=== PATIENT | female | born 1950 | race Caucasian/White ===

== ENCOUNTER 2017-04-26 11:35 | Inpatient (IN) | payer OTHER, SELFPAY ==
[~2017-04-26 11:35] MED LIST: Iopamidol 370 76% 100 ML VIAL ONE
--- NOTE | 2017-04-26 12:26 | RAD ---
PORTABLE FRONTAL CHEST RADIOGRAPH: Date: 04-26-17 Comparison: None. History: Cough, fever, shortness of breath. FINDINGS: There is mild increased linear interstitial density with pulmonary hyperinflation. There is no pneumo thorax, pleural fluid, focal consolidation or alveolar edema. IMPRESSION: Interstitial prominence with pulmonary hyperinflation. Question a history of COPD. No focal consolida tion or alveolar edema. POS: [facility]
[2017-04-26] MEDS ORDERED: cefTRIAXone\\ROCEPHIN 1 GM VIAL ONE (12:27)
[2017-04-26] MEDS ORDERED: Azithromycin 250 MG TAB ONE (12:27)
[2017-04-26] MEDS ORDERED: Acetaminophen 325 MG TAB ONE (12:27)
[2017-04-26] MEDS ORDERED: methylPREDNISolone Sod Succ/PF 125 MG/2 ML VIAL ONE (12:27)
[2017-04-26 12:28] LABS: #Basophils 0.1 thou/uL (0.0-0.2); #Lymphocytes 1.7 thou/uL (1.20-3.40); #Neutrophils 14.2 thou/uL (1.40-6.50); %Basophils 0.7 % (0.0-1.0); %Lymphocytes 9.5 % (21.0-51.0); %Monocytes 11.2 % (0.0-10.0); %Neutrophils 78.5 % (42.0-75.0); Hemoglobin 14.2 g/dL (12.0-16.0); Mean Corpuscular HGB CONC 32.7 g/dL (32.0-36.0); Mean Corpuscular Volume 91.8 fl (81.0-99.0); Mean Platelet Volume 9.3 fL (7.4-10.4); Platelet Count 288 thou/uL (130-400); RBC Distribution Width 11.2 % (11.5-14.5); Red Blood Cell (RBC) Count 4.73 mill/uL (4.20-5.40); White Blood Cell (WBC) Count 18.1 thou/uL (4.8-10.8)
[2017-04-26 12:40] LABS: ALT (SGPT) 11 U/L (8-55); AST (SGOT) 19 U/L (5-34); Albumin 3.8 g/dL (3.4-4.8); Alkaline Phosphatase 55 U/L (40-150); Anion Gap 17 mmol/L (10-20); BUN (Urea Nitrogen) 7 mg/dL (9.8-20.1); Bilirubin, Total 0.5 mg/dL (0.2-1.2); Calc. Creatinine Clearance 0 mL/min (70-130); Calcium 9.9 mg/dL (7.8-10.44); Carbon Dioxide 23 mmol/L (23-31); Chloride 98 mmol/L (98-107); Estimated GFR-MDRD 73; Globulin 4.3 g/dL (2.4-3.5); Glucose 114 mg/dL (80-115); Potassium 4.3 mmol/L (3.5-5.1); Protein, Total 8.1 g/dL (6.0-8.3); Sodium 134 mmol/L (136-145)
[2017-04-26 12:41] LABS: CKMB 1.9 ng/mL (0-6.6); Troponin I Less than 0.010 ng/mL (< 0.028)
[2017-04-26] MEDS ORDERED: Ibuprofen 200 MG TAB ONE (12:59)
--- NOTE | 2017-04-26 14:14 | CT ---
CT ANGIOGRAM THORAX WITH IV CONTRAST AND 3D RECONSTRUCTIONS: Date: 04/26/17 HISTORY: Cough, fever, and shortness of breath since 04/13/17. FINDINGS: The thoracic aorta is normal in caliber without evidence of an aortic dissection. Minimal vascular ca lcifications are seen at the aortic arch. No filling defects are seen in the pulmonary arteries to suggest a pulmonary embolus. Visualized upper abdominal aorta is patent. The celiac and superior mesenteric arteries are patent, b ut there appears to be a severe narrowing involving the most proximal common hepatic artery. The visualized bilateral renal arteries are patent. There is soft tissue density seen in the right hilar region with largest area of soft tissue density measuring 1.7 cm x 1.3 cm suggesting lymphadenopathy. Soft tissue density is also seen in the left hi lar region measuring 16.0 mm x 10.0 mm, also suggestive of mildly enlarged lymph node. A few nonspeci fic, nonenlarged prevascular space lymph nodes are present. There is mild, nonspecific thickening of the aleman of the esophagus at the level of the distal trache a near the [place]. There is evidence of COPD with prominent bullous emphysematous changes in the right upper lobe. Retic ulonodular opacities are seen within the right upper, right middle, and right lower lobes, and to a l nadira extent in the left lower lobe, likely related to infectious or inflammatory process. Atypical i nfectious process is a possibility. There are patchy parenchymal changes in the right middle lobe which could be related to atelectasis o r focal area of pneumonitis. No pleural effusion is identified. Calcified granuloma is seen in the left lower lobe. A subcentimeter, too small to characterize, hypodense lesion is seen in the mid portion of the right kidney. There is thickening involving the adrenal glands bilaterally, but there is a small hypodense nodule i n the right adrenal gland measuring 1.9 cm. This cannot be further characterized on this postcontrast CT scan exam. IMPRESSION: 1. Reticulonodular densities seen bilaterally, greater on the right, which is suggestive of an infec tious or inflammatory process. Atypical infectious process is a possibility. 2. Prominent bilateral hilar lymph nodes which may represent mild reactive lymphadenopathy. 3. Apparent mild thickening involving the mid thoracic esophagus just above the level of the [place]. Follow-up evaluation versus endoscopy is recommended. 4. Right adrenal nodule. This cannot be further characterized on this exam, and a noncontrast CT sca n of the abdomen is recommended for further evaluation of the adrenal glands. 5. COPD. 6. Focal narrowing seen within the most proximal aspect of the common hepatic artery with degree of narrowing being severe in severity. 7. No CT evidence of a pulmonary embolus. POS: [facility]
[2017-04-26 16:33] VITALS: BMI 23.8
[2017-04-26] MEDS ORDERED: Ipratropium Bromide 2.5 ml Neb NEB PRN (16:41)
[2017-04-26] MEDS ORDERED: Albuterol Sulfate 2.5 mg/3 ml Neb NEB PRN (16:41)
[2017-04-26] MEDS ORDERED: Ondansetron HCl/PF 4 MG/2 ML Vial IVP PRN (16:42)
[2017-04-26] MEDS ORDERED: Ondansetron ODT 4 MG TAB SL PRN (16:42)
[2017-04-26] MEDS ORDERED: Ondansetron ODT 4 MG TAB PO PRN (17:14)
[2017-04-26] MEDS ORDERED: Acetaminophen 325 MG TAB PO PRN (17:14)
[2017-04-26] MEDS ORDERED: cefTRIAXone\\ROCEPHIN 1 GM in Sodium Chloride 0.9% 100 ML IVPB SCH (17:15)
[2017-04-26] MEDS ORDERED: Loratadine 10 MG TAB PO PRN (17:23)
[2017-04-26] MEDS: Benzonatate 100 MG CAP PO PRN (18:51)
--- NOTE | 2017-04-26 23:44 | HP ---
DATE OF SERVICE: 04/26/2017 CHIEF COMPLAINT: Cough and shortness of breath. HISTORY OF PRESENT ILLNESS: The patient is a 66-year-old female with a past medical history of fibromyalgia who presented to my office this morning as a new patient with cough, fever, chills, headache and muscle aches since . The patient noted that her was sick with similar symptoms and then she became ill. Her illness started the day after she got both the flu and pneumonia shot. She has noticed that her sensitivities, it is decreased over the past couple of weeks and she also stated that her urine output was decreased as well. She noted that her appetite was not as great, she had been drinking quite as much as she normally does. She states that over the course of the past 3 days, her cough has become productive of yellow sputum and she also endorses shortness of breath and some occasional wheezing. On arrival to my office for initial O2 sats were between 70% and 80% on room air. As she would stop and take some deep breath it would get as high as 88, so this was checked on 2 different pulse oximeters. The patient was sent to the ER where she had a chest x-ray and CT scan which showed possible scattered pneumonia. She has received Rocephin and azithromycin so far, as well as IV Solu-Medrol and breathing treatment. The patient notes that she is already feeling a little bit better and she is not requiring oxygen at this time. The patient's cough is also improved since she had a breathing treatment. The patient is being admitted to the medical floor for COPD exacerbation and pneumonia. PAST MEDICAL HISTORY: 1. Fibromyalgia. 2. Suspected chronic obstructive pulmonary disease. PAST SURGICAL HISTORY: Cervical conization. SOCIAL HISTORY: The patient is and does have children. She has 50-pack -year smoking history, but has not smoked since 04/13/2017. She endorses rare alcohol use, maybe 2 to 3 times per year and no other drug use. FAMILY HISTORY: Mom had hypertension and dad was an alcoholic and had COPD. ALLERGIES: CODEINE. MEDICATIONS: None. REVIEW OF SYSTEMS: General: Positive for fever and chills. Eyes: Negative for blurry vision or eye pain. HEENT: Positive for sinus congestion, ear pain, but denies sore throat. Cardiovascular: Negative for chest pain, palpitations, and lower extremity edema. Respiratory: Positive for shortness of breath, cough, and wheezing. Gastrointestinal: Negative for nausea, vomiting, diarrhea, and constipation. Genitourinary: Negative for dysuria and polyuria. Musculoskeletal: Positive for diffuse muscle aches and joint pains. Skin: Negative for rashes or itching. Psychiatric: Negative for anxiety and depression. Neurologic: Negative for syncope and seizure. PHYSICAL EXAMINATION: VITAL SIGNS: Temperature 97.1, pulse 74, respiratory rate 16, O2 sat 96% on 1-1 /2 liters, and blood pressure 125/68. GENERAL: The patient is awake, alert, and oriented, in no acute distress. EYES: Pupils are equal, round, and reactive to light and accommodation. Extraocular muscles intact. HEENT: Oropharynx and nasopharynx are without erythema or exudate. NECK: Supple without lymphadenopathy, thyromegaly or bruits. CARDIOVASCULAR: Regular rate and rhythm without murmurs, gallops, or rubs. LUNGS: Coarse breath sounds with scattered wheezing on expiration and occasional rhonchi noted. The patient has normal effort, no retractions. ABDOMEN: Soft, nontender, nondistended, bowel sounds present. EXTREMITIES: There is no clubbing, cyanosis or edema. MUSCULOSKELETAL: The patient has full range of motion of all extremities. Muscle strength is 5/5. SKIN: There are no rashes or jaundice noted. NEUROLOGIC: Cranial nerves II through XII are grossly intact, deep tendon reflexes 2/4. PSYCHIATRIC: The patient displays an appropriate mood and affect during the exam. LABS: 1. CBC: WBC is 18.1, hemoglobin 14.2, hematocrit 43.4, platelet count 288, neutrophils 78.5. 2. D-dimer is 0.75. 3. CMP: Sodium 134, potassium 4.3, chloride 98, bicarbonate 23, BUN 7, creatinine 0.79, glucose 114, calcium 9.9, total bilirubin 0.5, AST 19, ALT 11, alkaline phosphatase 55, total protein 8.1, albumin 3.8. 4. BNP 22.1. 5. Cardiac enzymes: CK-MB 1.9 and troponin I less than 0.01. IMAGIN. Chest x-ray shows pulmonary hyperinflation without focal consolidation. 2. CTA of the chest shows reticular nodular densities, bilateral lungs suggestive of infectious or inflammatory process with reactive hilar lymph nodes as well as mild thickening of the mid thoracic esophagus and focal narrowing of the common hepatic artery, but no PE was noted. ASSESSMENT AND PLAN: 1. Community-acquired pneumonia: The patient will be continued on Rocephin and azithromycin. We will cover for atypical bacteria. The patient has already tested negative for the flu in our office. We will repeat a CBC in the morning to trend her white count. 2. Chronic obstructive pulmonary disease exacerbation: The patient will be continued on steroids as well as scheduled DuoNebs and albuterol as needed. She will have oxygen as needed, we will try to wean this over the course of her hospitalization. 3. Fibromyalgia: The patient will have Tylenol and will monitor pain and adjust as needed. 4. Thickening in the esophagus: The patient will need outpatient GI workup and likely need an EGD. 5. Narrowing in the hepatic artery: We can schedule the patient for a CT abdomen without contrast. 6. Substance abuse: Counseled pt on cessation of marijuana use. 7. Deep venous thrombosis prophylaxis with Lovenox. MTDD
[2017-04-26] MEDS ORDERED: methylPREDNISolone Sod Succ/PF 125 MG/2 ML VIAL IVP SCH (23:59)
[2017-04-27] MEDS: Guaifenesin DM 100-10/5 ML UDCUP PO PRN (00:25)
[2017-04-27 05:35] LABS: #Lymphocytes 1.1 thou/uL (1.20-3.40); #Monocytes 0.3 thou/uL (0.11-0.59); #Neutrophils 17.1 thou/uL (1.40-6.50); %Basophils 0.2 % (0.0-1.0); %Lymphocytes 5.8 % (21.0-51.0); %Monocytes 1.5 % (0.0-10.0); %Neutrophils 92.5 % (42.0-75.0); Hemoglobin 11.9 g/dL (12.0-16.0); Mean Corpuscular HGB CONC 33.6 g/dL (32.0-36.0); Mean Corpuscular Hemoglobin 30.7 pg (27.0-31.0); Mean Corpuscular Volume 91.5 fl (81.0-99.0); Mean Platelet Volume 9.2 fL (7.4-10.4); Platelet Count 297 thou/uL (130-400); RBC Distribution Width 11.4 % (11.5-14.5); Red Blood Cell (RBC) Count 3.87 mill/uL (4.20-5.40); White Blood Cell (WBC) Count 18.5 thou/uL (4.8-10.8)
[2017-04-27 05:48] LABS: Anion Gap 16 mmol/L (10-20); BUN (Urea Nitrogen) 15 mg/dL (9.8-20.1); Calc. Creatinine Clearance 65 mL/min (70-130); Calcium 9.6 mg/dL (7.8-10.44); Carbon Dioxide 22 mmol/L (23-31); Chloride 100 mmol/L (98-107); Estimated GFR-MDRD 69; Glucose 176 mg/dL (80-115); Potassium 4.5 mmol/L (3.5-5.1); Sodium 133 mmol/L (136-145)
[2017-04-27] MEDS: Azithromycin 250 MG TAB PO SCH (08:36)
[2017-04-27] MEDS: Enoxaparin Sodium 40 MG/0.4 ML SYRINGE SC SCH (08:37)
[2017-04-27] MEDS ORDERED: Azithromycin 500 MG in Sodium Chloride 0.9% 250 ML 250 ML IVPB SCH (12:00)
[2017-04-27] MEDS: cefTRIAXone\\ROCEPHIN 1 GM VIAL SLOW IVP SCH (12:25)
[2017-04-27] MEDS: Sterile Water 10 ML VIAL FS SCH (12:25)
--- NOTE | 2017-04-27 13:04 | RAD ---
CHEST 2 VIEWS: Date: 04/27/17 HISTORY: Pneumonia. Follow-up. COMPARISON: 04/26/17. FINDINGS: Cardiac silhouette and pulmonary vasculature are unremarkable. Lungs remain well inflated. Calcified granulomata are consistent with healed granulomatous disease. No confluent air space consolidation, p leural fluid, or pneumothorax are evident. IMPRESSION: COPD and other chronic-type findings appear stable. No lobar consolidation is apparent. POS: [facility]
[2017-04-27] MEDS ORDERED: Albuterol Sulfate 2.5 mg/3 ml Neb NEB PRN (20:59)
[2017-04-27] MEDS: Temazepam 15 MG CAP PO PRN (22:10)
--- NOTE | 2017-04-28 00:32 | PRG ---
DATE OF SERVICE: 04/27/2017 SUBJECTIVE: The patient is a 66-year-old female who was admitted for community-acquired pneumonia an d COPD exacerbation. The patient states that her cough is better with the breathing treatments. She has required about a liter and a half of oxygen overnight and notes that she is feeling a little bit better, but is still quite tired. Nursing denies any complaint. OBJECTIVE: VITAL SIGNS: Temperature 97.8, pulse 73, respiratory rate 20, O2 sat 93% on 1-1/2 liters via nasal c annula, blood pressure 126/59. GENERAL: The patient is awake, alert, and oriented, in no acute distress. HEENT: Oropharynx and nasopharynx without erythema or exudates. Mucous membranes are moist. CARDIOVASCULAR: Regular rate and rhythm without murmurs, gallops, or rubs. LUNGS: Coarse breath sounds with decreased wheezing on exam as compared to the day before. ABDOMEN: Soft, nontender, nondistended with bowel sounds present. EXTREMITIES: There is no clubbing, cyanosis, or edema. PSYCHIATRIC: The patient displays appropriate mood and affect. LABORATORY: 1. CBC: WBC 18.5, hemoglobin 11.9, hematocrit 35.4, platelet count 297. 2. BMP: Sodium 133, potassium 4.5, chloride 100, bicarbonate 22, BUN 15, creatinine 0.83, glucose 1 76, calcium 9.6. 3. Chest x-ray shows no lobar consolidation but chronic COPD changes are noted. ASSESSMENT AND PLAN: 1. Community-acquired pneumonia: CT scans were consistent with atypical pneumonia. The patient khadijah l be continued on Rocephin and azithromycin. Blood cultures to date have been negative. The patient 's white count is unchanged; however, symptomatically is feeling better. We will recheck white count in the morning and continue current management. 2. Chronic obstructive pulmonary disease: The patient received Solu-Medrol overnight, will be trans itioned over to p.o. prednisone. She will continue scheduled DuoNebs with albuterol as needed as the y seem to help her breathing and her cough. We will try to wean oxygen as tolerated. 3. Fibromyalgia: We will continue Tylenol. The patient denies significant pains during the visit. 4. Thickening in the esophageal: The patient will need an outpatient GI workup and EGD. 5. Marijuana use: I counseled for cessation. 6. Hepatic artery narrowing: The patient will need a CT of the abdomen without contrast as an outpa tient, pending GI evaluation.
[2017-04-28 05:33] LABS: Band 4 % (5-11); Hemoglobin 11.9 g/dL (12.0-16.0); Lymphocytes 13 % (21-51); MDiff Complete? YES; Mean Corpuscular HGB CONC 33.7 g/dL (32.0-36.0); Mean Corpuscular Hemoglobin 31.2 pg (27.0-31.0); Mean Corpuscular Volume 92.5 fl (81.0-99.0); Mean Platelet Volume 9.3 fL (7.4-10.4); Monocytes 3 % (0-10); Neutrophil 80 % (42-75); PLT Morphology Comment Appears Adequate; Platelet Count 340 thou/uL (130-400); RBC Distribution Width 11.6 % (11.5-14.5); RBC Morphology Normal; Red Blood Cell (RBC) Count 3.83 mill/uL (4.20-5.40); White Blood Cell (WBC) Count 24.7 thou/uL (4.8-10.8)
[2017-04-28 05:42] LABS: Anion Gap 14 mmol/L (10-20); BUN (Urea Nitrogen) 16 mg/dL (9.8-20.1); Calc. Creatinine Clearance 70 mL/min (70-130); Calcium 9.4 mg/dL (7.8-10.44); Carbon Dioxide 23 mmol/L (23-31); Chloride 103 mmol/L (98-107); Estimated GFR-MDRD 75; Glucose 107 mg/dL (80-115); Sodium 136 mmol/L (136-145)
[2017-04-28] MEDS: predniSONE 20 MG TAB PO SCH (08:17)
[2017-04-28] MEDS: Azithromycin 250 MG TAB PO SCH (08:18)
[2017-04-28] MEDS: Enoxaparin Sodium 40 MG/0.4 ML SYRINGE SC SCH (08:18)
--- NOTE | 2017-04-28 08:59 | PRG ---
DATE OF SERVICE: 04/28/2017 SUBJECTIVE: The patient is a 66-year-old female who was admitted for community-acquired pn eumonia and COPD exacerbation. Overnight the patient states that she slept very well. Her cough is much better. She states that she is feeling better and her appetite is improving. She denies abdomi nal pain, chest pain, fever and chills. OBJECTIVE: VITAL SIGNS: Temperature 97.3, pulse 75, respiration rate 18, O2 sat 93% on room air, blood pressure 109/59. Please note that the O2 sat was on room air despite it saying 1.5 liters of oxygen because the patien t forgot to put her oxygen back on. PHYSICAL EXAMINATION: GENERAL: The patient is awake, alert, oriented, in no acute distress. HEENT: Oropharynx and nasopharynx are without erythema. The mucous membranes are moist. CARDIOVASCULAR: Regular rate and rhythm without murmurs, gallops, or rubs. LUNGS: Clear to auscultation bilaterally without wheezing or rhonchi. ABDOMEN: Soft, nontender, nondistended with bowel sounds present. EXTREMITIES: No clubbing, cyanosis, or edema. LABORATORY: 1. CBC: WBCs 24.7, hemoglobin 11.9, hematocrit 35.4, platelet count 340. Neutrophils 80%. 2. BMP: Sodium 136, potassium 4.0, chloride 103, bicarbonate 23, BUN 16, creatinine 0.77, glucose 1 07, calcium 9.4. 3. Blood cultures negative to date. ASSESSMENT AND PLAN: 1. Community-acquired pneumonia: The patient's white blood cell count increased, the neutrophils nguyen ve decreased. Clinically, the patient is looking much better. She has had no fever, no tachycardia, no hypotension and her oxygen requirement is decreasing. Her cough is improving. I think that the leukocytosis is likely secondary to the steroids that she is being treated with because once again cl inically she is much improved. We will check a lactate this morning and repeat her CBC tomorrow. 2. Leukocytosis: See explanation mentioned above, but will also add a urinalysis and urine culture to verify that there are no other sources of infection. 3. Chronic obstructive pulmonary disease exacerbation: The patient is being changed to prednisone w ith the first dose starting today. She will continue scheduled DuoNebs with albuterol as needed. Wh eezing is much improved. We will wean O2 to keep sats greater than 88%. I suspect the patient has u nderlying chronic obstructive pulmonary disease from her long-term smoking use and once she is discha ed, will need pulmonary function testing. 4. Narrowing of the hepatic artery: We will get a CT of the abdomen without contrast as recommended on initial CT scan. 5. Thickening of the esophagus: Once again the patient will need outpatient GI followup for an esop hagogastroduodenoscopy. 6. Fibromyalgia: Pain is currently controlled.
[2017-04-28 10:51] LABS: Bilirubin Negative (Negative); Blood, Urine Small (Negative); Clarity Clear (Clear); Glucose, Urine (Dipstick) Negative (Negative); Leukocyte Negative (Negative); Nitrite Negative (Negative); Protein, Urine (Dipstick) Trace mg/dL (Neg-Trace); Specific Gravity, Urine 1.015 (1.005-1.030); Urobilinogen 0.2 mg/dL (0.2-1.0)
[2017-04-28 11:10] LABS: Bacteria/HPF 1+ HPF (None Seen); Other Microscopic Description NO; RBC/HPF 0-3 HPF (0-3); Yeast-All Forms 1+ HPF (None Seen)
[2017-04-28] MEDS: Guaifenesin DM 100-10/5 ML UDCUP PO PRN (11:26)
--- NOTE | 2017-04-28 12:45 | CT ---
NONCONTRAST-ENHANCED CT IMAGES ABDOMEN AND PELVIS: HISTORY: Patient with a right adrenal lesion. FINDINGS: Noncontrast CT images of the abdomen and pelvis demonstrate the liver and spleen, gallbladder, and pa ncreas appear unremarkable. The right adrenal gland fullness has a Hounsfield measurement of -6.7 hi ggesting an adrenal adenoma. No evidence of periaortic lymphadenopathy is seen. There is a right ov adalgisa cyst or cystic lesion present diameter measuring approximately 2.4 cm. The patient has bilater al fallopian tube surgical clips. Atherosclerotic calcification of the abdominal aorta is seen. IMPRESSION: 1. Right adrenal lesion likely represents a right adrenal adenoma. 2. Right ovarian cyst or cystic lesion. Correlate with pelvic sonography. POS: [facility]
[2017-04-28] MEDS: Sterile Water 10 ML VIAL FS SCH (12:55)
[2017-04-28] MEDS: cefTRIAXone\\ROCEPHIN 1 GM VIAL SLOW IVP SCH (12:55)
[2017-04-28] MEDS: Temazepam 15 MG CAP PO PRN (20:35)
[2017-04-29 05:34] LABS: #Basophils 0.1 thou/uL (0.0-0.2); #Lymphocytes 2.4 thou/uL (1.20-3.40); #Monocytes 0.9 thou/uL (0.11-0.59); %Basophils 0.5 % (0.0-1.0); %Neutrophils 76.5 % (42.0-75.0); Hemoglobin 12.3 g/dL (12.0-16.0); Mean Corpuscular HGB CONC 31.9 g/dL (32.0-36.0); Mean Corpuscular Hemoglobin 29.9 pg (27.0-31.0); Mean Corpuscular Volume 93.7 fl (81.0-99.0); Mean Platelet Volume 8.6 fL (7.4-10.4); Platelet Count 364 thou/uL (130-400); RBC Distribution Width 11.7 % (11.5-14.5); White Blood Cell (WBC) Count 14.3 thou/uL (4.8-10.8)
[2017-04-29 05:47] LABS: Anion Gap 12 mmol/L (10-20); BUN (Urea Nitrogen) 13 mg/dL (9.8-20.1); Calc. Creatinine Clearance 70 mL/min (70-130); Calcium 9.7 mg/dL (7.8-10.44); Carbon Dioxide 27 mmol/L (23-31); Chloride 103 mmol/L (98-107); Estimated GFR-MDRD 75; Glucose 87 mg/dL (80-115); Potassium 4.6 mmol/L (3.5-5.1); Sodium 137 mmol/L (136-145)
[2017-04-29] MEDS: Guaifenesin DM 100-10/5 ML UDCUP PO PRN (08:41)
[2017-04-29] MEDS: Benzonatate 100 MG CAP PO PRN (08:42)
[2017-04-29] MEDS: Enoxaparin Sodium 40 MG/0.4 ML SYRINGE SC SCH (08:43)
[2017-04-29] MEDS: Azithromycin 250 MG TAB PO SCH (08:44)
[2017-04-29] MEDS: predniSONE 20 MG TAB PO SCH (08:44)
[2017-04-29 08:51] VITALS: BP 126/72; TEMP 96.8
[2017-04-29] MEDS ORDERED: PROVENTIL INHALER 6.7 G (200 INHALATIONS) INH PRN (09:32)
--- NOTE | 2017-04-29 17:15 | DIS ---
DATE OF ADMISSION: 04/26/2017 DATE OF DISCHARGE: 04/29/2017 DISCHARGE DIAGNOSES: 1. Community-acquired pneumonia. 2. Chronic obstructive pulmonary disease exacerbation. 3. Fibromyalgia. 4. Adrenal adenoma. 5. Narrowing of hepatic artery. 6. Urinary tract infection. DISCHARGE MEDICATIONS: 1. Bactrim DS 1 p.o. b.i.d. x7 days. 2. Azithromycin 250 mg 1 p.o. daily for an additional 2 days. 3. Prednisone 20 mg tabs, take 2 p.o. q.a.m. x5 days. 4. ProAir inhaler 2 puffs q.4 h. p.r.n. shortness of breath and wheezing. 5. Tessalon 200 mg 1 p.o. q.4 h. p.r.n. cough. HOSPITAL COURSE: The patient is a 66-year-old female who was sent to the ER from my office for shortness of breath, hypoxia and cough. The patient was found to have an atypical pneumonia wit h an elevated white blood cell count and was admitted for IV antibiotics, steroids and oxygen. The p atient was placed on Rocephin and azithromycin. Initially, her white count had climbed to 24,000 dur ing the hospitalization before dropping to 14,000. She has remained afebrile throughout the hospital ization and shortness of breath has improved. The patient also was initially started on Solu-Medrol and has been transitioned over to p.o. prednisone. On initial CTA, it was noted that the patient had some narrowing in her hepatic artery as well as a possible adrenal mass. She had a CT of the abdome n yesterday which showed adrenal adenoma and a possible ovarian cyst. When the patient's white count went up to 24,000 yesterday, we also added a urinalysis with culture. The culture is still pending, but she did have 1+ bacteria on UA. The patient has been started on Bactrim because she did admit t o some dysuria. The patient will be discharged home and will follow up with me as an outpatient with in 1 week. Warning signs were given to the patient to return to the ER. DISPOSITION: 1. Discharge home in stable condition. 2. Diet: Regular. 3. Activity: Ad-luana. 4. The patient will follow up with myself in clinic next week.
[2017-04-29] MEDS ORDERED: Sulfameth/Trimethoprim DS 800-160mg TAB PO SCH (21:00)
== END 2017-04-29 10:26 | disposition home or self-care (01) | DRG 194 ==
LOC: NAV ERS 11:35 → NAV ACUTE 16:10
PROVIDERS: ADMIT Family Medicine; ATTEND Family Medicine
DX: J18.9 Pneumonia, unspecified organism (principal); J44.0 Chronic obstructive pulmonary disease with (acute) lower respiratory infection; J44.1 Chronic obstructive pulmonary disease with (acute) exacerbation; N39.0 Urinary tract infection, site not specified; M79.7 Fibromyalgia; F12.10 Cannabis abuse, uncomplicated; K22.8 Other specified diseases of esophagus; I77.1 Stricture of artery; Z87.891 Personal history of nicotine dependence; D35.01 Benign neoplasm of right adrenal gland
CPT/HCPCS: 36415; 71045; 71046; 71275; 74176; 80048; 80053; 81003; 81015; 82553; 83605; 83880; 84484; 85025; 85379; 87040; 87086; 93005; 94640; 94760; 96374; 96375; A4216; J0696; J1650; J2930; J7506; J7620; Q0162

== ENCOUNTER 2019-03-19 17:20 | Inpatient (IN) | payer MEDICARE ==
--- NOTE | 2019-03-19 17:54 | RAD ---
Exam: Chest one view HISTORY:Rales and rhonchi Comparison: 03/16/2019 FINDINGS: Cardiac silhouette: Normal Aorta: Unremarkable Pulmonary vessels: Normal Costophrenic angles: Clear LUNGS: No masses or consolidation. Chronic changes. Pneumothorax: None Osseous abnormalities: None IMPRESSION: No acute cardiopulmonary process.
[2019-03-19] MEDS ORDERED: Bisacodyl 10 MG SUPP PR PRN (17:56)
[2019-03-19] MEDS ORDERED: Milk Of Magnesia 30 ML UDCUP PO PRN (17:56)
[2019-03-19 18:30] VITALS: BMI 26.2
[2019-03-19] MEDS ORDERED: FLU VACC QS2019-20(6MOS UP)/PF 60 MCG/0.5 ML SYRINGE IM ONE (19:00)
[2019-03-19] MEDS ORDERED: Prevnar 13-Val Conj/PF 0.5 ML SYRINGE IM ONE (19:00)
[2019-03-19] MEDS: Sodium Chloride 1 GM TAB PO SCH (21:19)
[2019-03-19] MEDS: Famotidine 20 MG TAB PER TUBE SCH (21:20)
[2019-03-19] MEDS: NIMODIPINE 30 MG PO SCH (21:36)
--- NOTE | 2019-03-20 02:54 | HP ---
CC: rehabilitation HISTORY OF PRESENT ILLNESS: The patient is a 68-year-old female who is being transferred from [facility] to [place] for rehabilitation following a prolonged hospital stay with subarachnoid hemorrhage. The patient was initially admitted to [facility] in [place] on 03/06/2019. Earlier that day, she was trying to walk out of her bedroom, called her and talked about passing out and subsequently had a syncopal episode. The patient experienced cardiac arrest en route to the emergency department and was given epi and ROSC was achieved. In the ER, the patient was found to have an extensive subarachnoid hemorrhage. She was admitted to the ICU, intubated and sedated for several days. The patient had an external ventriculostomy placed and also underwent coiling of the aneurysm. Over the course of the patient's hospitalization, she did regain some function. I was told that she was alert and oriented to person only and was somewhat difficult to understand. I am also told that she would sit up on the side of the bed and was participating in therapy and slept a lot off and on throughout the day. The patient failed a swallow study and subsequently a PEG tube was placed and she is receiving PEG tube feeds with Jevity 1.5 at 55 mL/hour with 30 mL of free water flushes q.4 hours. The patient developed hyponatremia thought to be secondary to the subarachnoid hemorrhage and she has been receiving salt tabs and her sodium is improving. The patient has had intermittent fevers during her hospitalization and had blood and urine cultures as well as a flu swab and chest x-ray which were all negative. It was thought that the fevers were likely due to the brain bleed. On arrival to [place] today, the patient was tachypneic with a rate of 28, febrile to 101.9 and very minimally responsive. With the sternal rub, the patient did open her eyes and was able to tell me that her name was Martha Calderón. She did not cooperate with any other part of the exam. The patient's O2 saturation was initially around 90% and the highest we could get was about 94%. A stat chest x -ray was ordered, which does not show any pleural effusions, may show some increased interstitial markings, but no definitive pneumonia. The patient's respirations came back to normal. It should be noted that the patient was never tachycardic and her blood pressure was stable the entire time. No other history is available at this time as the patient was unable to provide it. PAST MEDICAL HISTORY: Taken from the medical record shows a past medical history of COPD, hepatitis C status post treatment, subarachnoid hemorrhage, as mentioned above. PAST SURGICAL HISTORY: 1. Cervical conization. 2. Liver biopsy. 3. PEG tube placement. 4. Ventriculostomy. 5. Aneurysm coiling. FAMILY HISTORY: Unremarkable per report. SOCIAL HISTORY: Records indicate the patient has extensive smoking history as well as marijuana use for which she was positive on the recent hospitalization and drinks alcohol socially. REVIEW OF SYSTEMS: Unobtainable due to patient's mental status. ALLERGIES: CODEINE. MEDICATIONS: 1. Tylenol 640 mg per PEG q.6 hours p.r.n. pain or fever. 2. DuoNeb q.4 hours p.r.n. shortness of breath or wheezing. 3. Dulcolax 10 mg per rectum daily as needed for constipation. 4. Famotidine 20 mg per tube q.12 hours. 5. Magnesium 30 mL p.o. daily p.r.n. constipation. 6. Nimodipine 30 mg 2 tabs p.o. q.4 hours scheduled for a total of 3 weeks post hemorrhage. 7. Sodium chloride 4 g p.o. per PEG t.i.d. PHYSICAL EXAMINATION: VITAL SIGNS: Temp 101.9, pulse 82, respiration rate initially 28, but improved to 24, O2 saturation 93% on room air, blood pressure 149/79, and then improved to 137/76. GENERAL: The patient is minimally responsive, opens eyes to sternal rub and is able to answer her name, but does not say anything else. HEENT: Eyes, the patient has small pupils, which are unequal and nonreactive. Mucous membranes are moist without erythema. NECK: Supple without lymphadenopathy, thyromegaly or bruits. CARDIOVASCULAR: Regular rate and rhythm without murmurs, gallops, or rubs. LUNGS: Have rhonchi in bilateral bases. There are no retractions noted on exam nor wheezing. ABDOMEN: Soft, nondistended with normoactive bowel sounds. : Wells is in place. MUSCULOSKELETAL: Strength is unable to be assessed secondary to patient's mental status not cooperating with the exam. SKIN: No rashes, lesions, or jaundice noted. NEUROLOGIC: I am unable to do any neuro exam as the patient was unable to cooperate outside of gripping my hand on the right, but does not manager transport at all on the left. She does not follow any other commands. PSYCHIATRIC: The patient opens eyes to her name, but is not conversant beyond the ability to say her name. LABORATORY DATA: CBC: WBC 16.3, which is down trended to yesterday, hemoglobin 9.1, hematocrit 26.8, platelet count 385. BMP: Sodium 129, potassium 4.5, chloride 98, bicarb 29, BUN 14, creatinine 0.67 , glucose 127, calcium 8.4. ASSESSMENT AND PLAN: 1. Subarachnoid hemorrhage: The patient will continue on Nimotop for blood pressure control. We will monitor the patient overnight to see, if the patient's mental status improves. 2. Fever of unknown origin: I am going to repeat blood and urine cultures. The chest x-ray has been ordered and official read is pending; however my interpretation is that there is no pneumonia or pleural effusions present. I am also going to get a procalcitonin, repeat the CBC and BMP. 3. Hyponatremia: We will continue salt tabs and trend BMP with basic metabolic panel to come back tomorrow morning. 4. Urinary retention: We will continue Wells and follow up with Urology in 4 weeks. 5. At this time, I do not have any obvious source of infection. All of her cultures from her stay at the [facility] have been negative. I will repeat these to see, if anything else comes back. A procalcitonin is also pending. We are waiting on a BMP. Her previous BMP is within normal. Her ejection fraction was preserved on recent echo. However, she did not sound like she has fluid in her lungs initially. Her O2 sats have come back up to about 94%. We will provide oxygen as needed. There is concern that, if the patient continues to worsen she may need to be shift back to the [facility]. For now, we will monitor her condition and see if she is more alert in the morning. 6. Dysphagia. The patient has a percutaneous endoscopic gastrostomy tube in place. PT, OT, and speech therapy will be consulted. The hope is that with additional therapy, the patient may be able to swallow in the future. I will continue tube feeds at the current rate. 7. Deep venous thrombosis prophylaxis with SCDs. The patient is to be on no anticoagulation secondary to the recent subarachnoid hemorrhage. 8. Gastrointestinal prophylaxis with famotidine. Job ID: [id number] [facility]
[2019-03-20] MEDS: NIMODIPINE 30 MG PO SCH ×6 (04:44→15:54)
[2019-03-20 05:32] LABS: #Basophils 0.1 thou/uL (0.0-0.2); #Eosinphils 0.1 thou/uL (0.0-0.7); #Lymphocytes 1.2 thou/uL (1.20-3.40); #Monocytes 1.2 thou/uL (0.11-0.59); #Neutrophils 11.8 thou/uL (1.40-6.50); %Basophils 0.9 % (0.0-1.0); %Eosinophils 0.5 % (0.0-10.0); %Lymphocytes 8.5 % (21.0-51.0); %Monocytes 8.3 % (0.0-10.0); %Neutrophils 81.9 % (42.0-75.0); Hemoglobin 8.5 g/dL (12.0-16.0); Mean Corpuscular HGB CONC 33.1 g/dL (32.0-36.0); Mean Corpuscular Hemoglobin 31.5 pg (27.0-31.0); Mean Platelet Volume 7.6 fL (7.4-10.4); Platelet Count 408 thou/uL (130-400); RBC Distribution Width 12.5 % (11.5-14.5); Red Blood Cell (RBC) Count 2.69 mill/uL (4.20-5.40); White Blood Cell (WBC) Count 14.5 thou/uL (4.8-10.8)
[2019-03-20 05:43] LABS: Anion Gap 12 mmol/L (10-20); BUN (Urea Nitrogen) 16 mg/dL (9.8-20.1); Calc. Creatinine Clearance 100 mL/min (70-130); Calcium 8.3 mg/dL (7.8-10.44); Carbon Dioxide 23 mmol/L (23-31); Chloride 100 mmol/L (98-107); Estimated GFR-MDRD Greater than 90; Glucose 128 mg/dL (80-115); Potassium 4.3 mmol/L (3.5-5.1); Sodium 131 mmol/L (136-145)
[2019-03-20] MEDS: Sodium Chloride 1 GM TAB PO SCH ×2 (08:51→15:55)
[2019-03-20] MEDS: Famotidine 20 MG TAB PER TUBE SCH (08:51)
--- NOTE | 2019-03-20 08:59 | PRG ---
DATE OF SERVICE: 03/20/2019 SUBJECTIVE: The patient is a 68-year-old female with a recent subarachnoid hemorrhage, who is at [facility] for rehabilitation. Overnight, the patient has remained stable. She did have a fever of 100.9 early this morning. The patient's blood pressure was elevated overnight and nimodipine is on its way here from the main hospital. The patient is no longer tachypneic and O2 saturations have remained stable. OBJECTIVE: VITAL SIGNS: Temperature 98.4, pulse 92, respiration rate 18, O2 saturation 90% on room air, blood pressure 122/64. GENERAL: The patient is resting comfortably, in no acute distress. CARDIOVASCULAR: Regular rate and rhythm without murmurs, gallops, or rubs. LUNGS: Clear to auscultation bilaterally without wheezing or rhonchi. ABDOMEN: Soft, nontender, nondistended with PEG tube in place. EXTREMITIES: There is no clubbing, cyanosis, or edema. PSYCHIATRIC: The patient is awakened and is able to tell me her name. LABORATORY DATA: 1. CBC: WBC is 14.5, hemoglobin 8.5, hematocrit 25.6, platelet count 408. 2. BMP: Sodium 131, potassium 4.3, chloride 100, bicarb 23, creatinine 0.58, BUN 16, glucose 128, calcium 8.3. 3. BNP 284.8. 4. Procalcitonin 0.04. ASSESSMENT AND PLAN: 1. Subarachnoid hemorrhage, status post aneurysm coiling: PT, OT, and Speech Therapy have been consulted. At this point, I am unsure how well the patient will participate in therapy, but we will see how she does in the coming days. The patient's blood pressure medicine is arrived and she will begin taking that. 2. Fever of unknown origin: Cultures are pending at this time. Her procalcitonin is negative. 3. Leukocytosis is down trending. It is likely that her fever is neurogenic in nature, but we do want to rule out other causes of infection. 4. Hyponatremia: The patient's sodium is continuing to improve with the salt tabs. We will continue this and continue to monitor her labs. 5. Urinary retention: Continue routine Wells care. An outpatient urology followup will need to be set up in 4 weeks. 6. Dysphagia: Speech Therapy is consulted. We will continue tube feeds at the current rate. We will also continue to follow Dietary's recommendations. Job ID: [id number]
--- NOTE | 2019-03-20 13:32 | CT ---
EXAM: CT brain without contrast HISTORY: Altered mental status. History of intraventricular hemorrhage and SCHOOL AGE PROGRAM ASSOCIATE shunt. COMPARISON: 03/11/2019 TECHNIQUE: Multiple contiguous axial images were obtained and a CT of the brain without contrast. FINDINGS: There is prominence of the lateral ventricles consistent with hydrocephalus. The SCHOOL AGE PROGRAM ASSOCIATE shunt a ppears to have been removed. There is no evidence of intraventricular hemorrhage. Nahid are seen in the right frontal scalp. A coil is seen near the skull base. The visualized paran jerad sinuses and mastoid air cells are well aerated. IMPRESSION: Moderate hydrocephalus
[2019-03-20 15:51] VITALS: BP 127/67; TEMP 99.4
--- NOTE | 2019-03-21 13:08 | DIS ---
DATE OF ADMISSION: 03/19/2019 DATE OF DISCHARGE: 03/20/2019 HOSPITAL COURSE: The patient is a 68-year-old female, who was transferred from [facility] to [place] for skilled placement and rehabilitation following a subarachnoid hemorrhage. On arrival, the patient was very somnolent and difficult to arouse. She was tachypneic and hypoxic; however, her blood pressure and pulse were normal. With sternal rub, the patient was able to open her eyes and say her name. Her tachypnea started to improve. Chest x-ray was unremarkable, and labs were stable. Overnight, she was again febrile, and over the course of the day, she became more obtunded. Decision was made to transfer her back to [facility] for repeated Neurosurgery consult. We did obtain a CT of the head, which showed a moderate hydrocephalus. It was felt that this could be contributing to her altered mental status. The patient initially is transferring to a stroke bed. DISCHARGE MEDICATIONS: Same as admission medications. DISPOSITION: The patient is transferring to [facility] for higher level of care. Job ID: [id number]
== END 2019-03-20 18:20 | disposition short-term general hospital (02) | DRG 65 ==
LOC: NAV ACUTE 17:20
PROVIDERS: ADMIT Family Medicine; ATTEND Family Medicine
DX: I60.9 Nontraumatic subarachnoid hemorrhage, unspecified (principal); E87.1 Hypo-osmolality and hyponatremia; J44.9 Chronic obstructive pulmonary disease, unspecified; B19.20 Unspecified viral hepatitis C without hepatic coma; R13.10 Dysphagia, unspecified; Z98.890 Other specified postprocedural states; Z87.891 Personal history of nicotine dependence; Z88.5 Allergy status to narcotic agent; Z79.899 Other long term (current) drug therapy; R33.9 Retention of urine, unspecified; R50.9 Fever, unspecified; D72.829 Elevated white blood cell count, unspecified
CPT/HCPCS: 36415; 70450; 71045; 80048; 83880; 84145; 85025; 87040; 87086; 90471; 90670; 90686; G0008; G0009

== ENCOUNTER 2019-03-30 20:38 | Inpatient (IN) | payer MEDICARE ==
[2019-03-30] MEDS ORDERED: Bisacodyl 10 MG SUPP PR PRN (21:20)
--- NOTE | 2019-03-31 01:06 | HP ---
CHIEF COMPLAINT: Hydrocephalus needing rehabilitation. HISTORY OF PRESENT ILLNESS: The patient is a 68-year-old female with a past medical history of recent subarachnoid hemorrhage and aneurysmal coiling, went to about a 2-week hospital stay at [facility]. She was briefly transferred to [place] for rehabilitation a week and a half ago, where she decompensated from a neuro standpoint. A CT scan was obtained and shows that she has developed a significant hydrocephalus. The patient was transferred back to [place], where she was admitted to the ICU. She underwent external ventriculostomy placement and over the course of the hospitalization, then underwent FELT FINISHING SUPERVISOR shunt placement. The patient was transitioned out of the ICU into a regular bed. She has been improving from a neuro standpoint. The patient is transferring back to [place] to begin rehabilitation. The patient does have a PEG tube in place, so she still has difficulty swallowing and is undergoing tube feeds. The patient has left-sided weakness and a dysconjugate gaze at baseline. The patient was able to tell me her name and answer simple questions, though she is somewhat difficult to understand her responses. PAST MEDICAL HISTORY: 1. COPD. 2. Hepatitis C, status post treatment. 3. History of subarachnoid hemorrhage. 4. Hypothyroidism. PAST SURGICAL HISTORY: Liver biopsy, cervical conization, PEG tube placement, and FELT FINISHING SUPERVISOR shunt. FAMILY HISTORY: Noncontributory. SOCIAL HISTORY: 1-2 cigars per day for the last 15 years, cigarettes before that, and marijuana use. ALLERGIES: CODEINE. MEDICATIONS: 1. Acetaminophen 650 mg per tube q.6 hours p.r.n. 2. Dulcolax 10 mg per rectum daily p.r.n. 3. Famotidine 20 mg per tube q.12 hours. 4. DuoNeb q.4 hours p.r.n. 5. Levothyroxine 25 mcg per tube q.a.m. 6. Milk of magnesia 30 mL p.o. daily p.r.n. 7. Nimodipine 60 mg per tube q.4 hours. REVIEW OF SYSTEMS: The patient is unable to provide her review of systems at this time. PHYSICAL EXAMINATION: VITAL SIGNS: Temperature 98.4, pulse 72, respiratory rate 16, O2 saturation 97% on room air, blood pressure 122/72. GENERAL: The patient is awake, alert, oriented to person and in no acute distress. HEENT: Eyes, the patient has a dysconjugate gaze. Pupils are somewhat reactive. Oropharynx is without erythema or exudate. The patient does not have her dentures in. NECK: Supple without lymphadenopathy, thyromegaly or bruits. CARDIOVASCULAR: Regular rate and rhythm without murmurs, gallops, or rubs. LUNGS: Clear to auscultation bilaterally without wheezing or rhonchi. ABDOMEN: Soft, nontender, nondistended. Bowel sounds present. PEG tube is in place. MUSCULOSKELETAL: The patient is moving all four extremities. Polysomnographic Tech strength is 3/5 on the left, 5/5 on the right. Otherwise, upper and lower extremity strength is difficult to assess on the left. NEUROLOGIC: Significant for dysarthria and left-sided weakness. SKIN: Negative for rashes, or jaundice. PSYCHIATRIC: The patient is interactive. LABORATORY DATA: BMP from today shows a sodium of 137, potassium 3.8, chloride 102, bicarb 29, creatinine 0.61, BUN 15, glucose 126, calcium 9.3. ASSESSMENT AND PLAN: 1. Encephalopathy, status post subarachnoid hemorrhage and hydrocephalus: The PT, OT, and ST will be consulted to begin rehabilitation. We will see how the patient progresses with therapy services. 2. Hydrocephalus: The patient is status post ventriculoperitoneal shunt placement. She will likely need to follow up with Neurosurgery in the coming weeks. 3. Dysphagia: Speech Therapy has been consulted. We will continue tube feeds at this time. We will monitor electrolytes. 4. Hypothyroidism: Continue supplementation. 5. Gastrointestinal prophylaxis with famotidine. 6. Deep venous thrombosis prophylaxis: With sequential compression devices. 7. Hyponatremia: Sodium is back to normal and previously the patient was able to come off her salt tabs. 8. Chronic obstructive pulmonary disease: Continue nebulizers as needed. Job ID: [id number]
[2019-03-31] MEDS: niMODipine 30 MG CAP PO SCH ×6 (01:29→20:19)
[2019-03-31] MEDS: Levothyroxine Sodium 25 MCG TAB PO SCH (05:23)
[2019-03-31 05:41] LABS: #Basophils 0.1 thou/uL (0.0-0.2); #Eosinphils 0.2 thou/uL (0.0-0.7); #Lymphocytes 1.5 thou/uL (1.20-3.40); #Monocytes 0.7 thou/uL (0.11-0.59); #Neutrophils 4.5 thou/uL (1.40-6.50); %Eosinophils 2.8 % (0.0-10.0); %Lymphocytes 21.3 % (21.0-51.0); %Monocytes 9.8 % (0.0-10.0); %Neutrophils 65.2 % (42.0-75.0); Hemoglobin 9.5 g/dL (12.0-16.0); Mean Corpuscular Hemoglobin 30.4 pg (27.0-31.0); Mean Corpuscular Volume 95.1 fL (78.0-98.0); Mean Platelet Volume 6.6 fL (7.4-10.4); Platelet Count 464 thou/uL (130-400); RBC Distribution Width 13.1 % (11.5-14.5); Red Blood Cell (RBC) Count 3.11 mill/uL (4.20-5.40); White Blood Cell (WBC) Count 6.9 thou/uL (4.8-10.8)
[2019-03-31 06:02] LABS: ALT (SGPT) 30 U/L (8-55); AST (SGOT) 23 U/L (5-34); Albumin 3.2 g/dL (3.4-4.8); Alkaline Phosphatase 84 U/L (40-110); Anion Gap 13 mmol/L (10-20); BUN (Urea Nitrogen) 15 mg/dL (9.8-20.1); Bilirubin, Total 0.2 mg/dL (0.2-1.2); Calc. Creatinine Clearance 94 mL/min (70-130); Calcium 9.3 mg/dL (7.8-10.44); Carbon Dioxide 28 mmol/L (23-31); Chloride 101 mmol/L (98-107); Estimated GFR-MDRD Greater than 90; Globulin 3.2 g/dL (2.4-3.5); Glucose 115 mg/dL (80-115); Potassium 3.8 mmol/L (3.5-5.1); Protein, Total 6.4 g/dL (6.0-8.3); Sodium 138 mmol/L (136-145)
[2019-03-31] MEDS: Famotidine 20 MG TAB PER TUBE SCH ×2 (09:05→20:19)
--- NOTE | 2019-03-31 11:11 | PRG ---
DATE OF SERVICE: 03/31/2019 SUBJECTIVE: The patient is a 68-year-old female, undergoing rehabilitation following two hospital stays for subarachnoid hemorrhage and then subsequent hydrocephalus requiring BAR ASSISTANT shunt placement. The patient is answering questions and following commands. She has already worked with Physical Therapy this morning and is currently resting. She is tolerating tube feeds without difficulty. OBJECTIVE: VITAL SIGNS: Temperature 98.1, pulse 72, respiration rate 18, O2 saturation 97% on room air, and blood pressure 142/68. GENERAL: The patient is awake, alert, oriented to person and in no acute distress. CARDIOVASCULAR: Regular rate and rhythm without murmurs, gallops, or rubs. LUNGS: Clear to auscultation bilaterally without wheezing or rhonchi. ABDOMEN: Soft, nontender, nondistended, a PEG tube in place. NEUROLOGIC: The patient displays left-sided weakness. No dysconjugate gaze. SKIN: No rashes or jaundice noted. LABORATORY DATA: CBC: WBC 6.9, hemoglobin 9.5, hematocrit 29.5, and platelet count 464. CMP: Sodium 138, potassium 3.8, chloride 101, bicarb 28, BUN 15, creatinine 0.61, glucose 115, calcium 9.3, total bilirubin 0.2, AST 23, ALT 30, alkaline phosphatase 84, total protein 6.4, and albumin 3.2. ASSESSMENT AND PLAN: 1. Encephalopathy following subarachnoid hemorrhage: The patient will work with PT, OT, and Speech Therapy. We will reorient the patient as needed. 2. Hydrocephalus: The patient is status post BAR ASSISTANT shunt placement. Next week we will make certain the patient has a followup appointment with them. 3. Dysphagia: The patient will continue tube feeds, and she is tolerating them well. Speech Therapy will also work with the patient as Neurosurgery was somewhat hopeful that her swallowing function could return over time. 4. Hypothyroidism: Continue supplementation. 5. Chronic obstructive pulmonary disease: Nebs as needed. 6. Gastrointestinal prophylaxis with famotidine. 7. Deep venous thrombosis prophylaxis with SCDs. Job ID: [id number]
[2019-04-01] MEDS: niMODipine 30 MG CAP PO SCH ×6 (01:06→20:19)
[2019-04-01] MEDS: Levothyroxine Sodium 25 MCG TAB PO SCH (05:43)
[2019-04-01] MEDS: Famotidine 20 MG TAB PER TUBE SCH ×2 (09:19→20:19)
--- NOTE | 2019-04-01 09:31 | PRG ---
DATE OF SERVICE: 04/01/2019 SUBJECTIVE: This patient is a 68-year-old female, undergoing rehabilitation following subarachnoid hemorrhage and then, hydrocephalus requiring LEAD CUSTOMER SERVICE REPRESENTATIVE shunt placement. The patient has complained of some mild headache, but per nursing Tylenol does seem to help. The patient is awake and is interactive this morning and is seen moving her left side. OBJECTIVE: VITAL SIGNS: Temperature 98.6, pulse 72, respiration rate 18, O2 saturation 98% on room air, and blood pressure 131/75. GENERAL: The patient is awake and alert, in no acute distress. CARDIOVASCULAR: Regular rate and rhythm without murmurs, gallops, or rubs. LUNGS: Clear to auscultation bilaterally without wheezing or rhonchi. ABDOMEN: Soft, nontender, and nondistended. Bowel sounds present. PEG tube is in place. EXTREMITIES: There is no clubbing or cyanosis. NEUROLOGIC: The patient has left-sided weakness, but is regaining strength in her left upper extremity and is moving her left lower extremity a little bit. She continues to have a dysconjugate gaze. ASSESSMENT AND PLAN: 1. Subarachnoid hemorrhage status post coiling: The patient will continue to work with Therapy Services. She is getting a little bit more alert initially that I have seen her. 2. Hydrocephalus: The patient's ventriculoperitoneal shunt in place. We will need to set the patient up for followup with Neurosurgery on Tuesday and also get orders for when they will get her asha removed. 3. Hypothyroidism: Continue supplementation. 4. Dysphagia: Continue tube feeds. The patient will work with Speech Therapy. We will see if her swallowing can improve. 5. Chronic obstructive pulmonary disease: Breathing is at her baseline. 6. Deep venous thrombosis prophylaxis with sequential compression devices. 7. Gastrointestinal prophylaxis with famotidine. Job ID: [id number]
[2019-04-02] MEDS: niMODipine 30 MG CAP PO SCH ×6 (00:53→20:44)
[2019-04-02] MEDS: Levothyroxine Sodium 25 MCG TAB PO SCH (05:27)
[2019-04-02] MEDS: Famotidine 20 MG TAB PER TUBE SCH ×2 (08:37→20:44)
--- NOTE | 2019-04-02 12:34 | PRG ---
DATE OF SERVICE: 04/02/2019 SUBJECTIVE: The patient is a 68-year-old female, undergoing rehabilitation following a subarachnoid hemorrhage and subsequent hospitalization for hydrocephalus. The patient is noted to frequently repeat words that nursing staff says while talking with her. The patient denies pain to me this morning. She was getting cleaned up. This morning, she had had a bowel movement and then got feces on her hands. OBJECTIVE: VITAL SIGNS: Temperature 98.2, pulse 69, respiratory rate 18, O2 saturation 96% on room air, blood pressure 138/70. GENERAL: The patient is awake and in no acute distress. CARDIOVASCULAR: Regular rate and rhythm without murmurs, gallops, or rubs. LUNGS: Clear to auscultation bilaterally without wheezing or rhonchi. ABDOMEN: Soft, nontender, nondistended. Bowel sounds present. EXTREMITIES: There is no clubbing or cyanosis. NEUROLOGIC: The patient continues to have a dysconjugate gaze. Somewhat difficult to understand and has left-sided weakness. ASSESSMENT AND PLAN: 1. Subarachnoid hemorrhage. The patient is doing well, status post coiling. Blood pressure is controlled. We will work with PT and OT. 2. Hydrocephalus. Outpatient neurosurgery followup needs to be set up. 3. Dysphagia. Continue tube feeds. The patient is tolerating them well. Speech Therapy is being consulted to help with patient's swallowing. 4. COPD, stable. 5. Urinary retention. In the previous hospitalization, the patient came with orders to have a followup with Urology in 4 weeks. We will need to set this up. 6. Deep venous thrombosis prophylaxis with sequential compression devices. 7. Gastrointestinal prophylaxis with famotidine. We will try to change these to the granules. Job ID: [id number]
[2019-04-03] MEDS: niMODipine 30 MG CAP PO SCH ×6 (01:20→21:31)
[2019-04-03] MEDS: Levothyroxine Sodium 25 MCG TAB PO SCH (05:13)
[2019-04-03] MEDS: Famotidine 20 MG TAB PER TUBE SCH ×2 (08:55→21:31)
[2019-04-04] MEDS: niMODipine 30 MG CAP PO SCH ×6 (01:23→20:33)
[2019-04-04] MEDS: Levothyroxine Sodium 25 MCG TAB PO SCH (05:28)
[2019-04-04] MEDS: Famotidine 20 MG TAB PER TUBE SCH ×2 (10:06→20:33)
--- NOTE | 2019-04-04 12:56 | PRG ---
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 The patient has been doing quite well. She was able to work with therapy and walked a little over 50 feet today. She does tire easily and toward the end, her legs were starting to get across, but this is big improvement. The patient is tolerating tube feeds. OBJECTIVE: VITAL SIGNS: Temperature 97.7, pulse 76, respiratory rate 16, O2 saturation 97% on room air, and blood pressure 137/79. GENERAL: The patient is awake, alert, and oriented to person and place and in no acute distress. CARDIOVASCULAR: Regular rate and rhythm without murmurs, gallops, or rubs. LUNGS: Clear to auscultation bilaterally without wheezing or rhonchi. ABDOMEN: Soft, nontender, and nondistended with PEG tube placement. EXTREMITIES: There is no clubbing or cyanosis. NEUROLOGIC: The patient still has a dysconjugate gaze and left-sided weakness. However, she is answering more questions appropriately. ASSESSMENT AND PLAN: 1. Subarachnoid hemorrhage, status post coiling: The patient is participating well with therapy services and is showing improvement with PT and OT. 2. Hydrocephalus: We will make certain a followup appointment was set up with Neurosurgery. 3. Dysphagia: The patient will continue tube feeds. Speech therapy is working with the patient. We will try to see how her swallowing is coming along. 4. Chronic obstructive pulmonary disease: Continue nebs as needed. 5. Hypothyroidism: Continue supplementation. 6. Urinary retention: The patient still has Wells in place. We will set up a followup appointment with Urology with Dr. Lancaster. Job ID: [id number]
[2019-04-05] MEDS: niMODipine 30 MG CAP PO SCH ×6 (03:36→20:56)
[2019-04-05] MEDS: Levothyroxine Sodium 25 MCG TAB PO SCH (06:20)
[2019-04-05] MEDS: Famotidine 20 MG TAB PER TUBE SCH ×2 (09:40→20:55)
--- NOTE | 2019-04-05 12:44 | PRG ---
DATE OF SERVICE: 04/05/2019 SUBJECTIVE: The patient is a 68-year-old female, undergoing rehabilitation following a prolonged hospital stay with subarachnoid hemorrhage and then hydrocephalus requiring ELASTIC ATTACHER CHAINSTITCH shunt placement. The patient is becoming more alert. The patient is also becoming more agitated and was trying to get out of bed, which is unsafe. She does have a camera in the room that I have affixed for monitoring, but the patient likely needs a sitter. OBJECTIVE: VITAL SIGNS: Temp 96.2, pulse 85, respiratory rate 20, O2 saturation 98% on room air, blood pressure 131/66. GENERAL: The patient is awake, alert, and oriented to person and place. CARDIOVASCULAR: Regular rate and rhythm without murmurs, gallops, or rubs. LUNGS: Clear to auscultation bilaterally without wheezing or rhonchi. ABDOMEN: Soft, nontender, and nondistended. PEG tube in place. EXTREMITIES: There is no clubbing, cyanosis, or edema. NEUROLOGIC: The patient displays left-sided weakness and speech is somewhat slurred. She also has a dysconjugate gaze. ASSESSMENT AND PLAN: 1. Subarachnoid hemorrhage, status post coiling: Continue PT and OT. 2. Agitation: The patient would benefit from a sitter in the room as she is frequently trying to get up and is at high risk for falling. 3. Hydrocephalus: Followup appointment will be set up with Neurosurgery. 4. Dysphagia: Continue tube feeds. Speech therapy is continuing to work with the patient. 5. Repeat labs in the morning to monitor electrolytes. 6. Hypothyroidism: Continue supplementation. 7. Chronic obstructive pulmonary disease: Breathing is stable. Continue nebs as needed. 8. Insomnia: We will try melatonin at night. Job ID: [id number]
[2019-04-05] MEDS: Melatonin 3 MG TAB PER TUBE PRN (20:56)
[2019-04-06] MEDS: niMODipine 30 MG CAP PO SCH ×6 (01:17→20:01)
[2019-04-06] MEDS: Levothyroxine Sodium 25 MCG TAB PO SCH (05:01)
[2019-04-06 05:32] LABS: #Basophils 0.1 thou/uL (0.0-0.2); #Eosinphils 0.1 thou/uL (0.0-0.7); #Lymphocytes 1.9 thou/uL (1.20-3.40); #Monocytes 0.7 thou/uL (0.11-0.59); #Neutrophils 4.5 thou/uL (1.40-6.50); %Basophils 0.8 % (0.0-1.0); %Eosinophils 1.7 % (0.0-10.0); %Lymphocytes 26.6 % (21.0-51.0); %Monocytes 8.9 % (0.0-10.0); Hemoglobin 10.1 g/dL (12.0-16.0); Mean Corpuscular HGB CONC 31.8 g/dL (32.0-36.0); Mean Corpuscular Hemoglobin 30.7 pg (27.0-31.0); Mean Corpuscular Volume 96.8 fL (78.0-98.0); Mean Platelet Volume 7.1 fL (7.4-10.4); Platelet Count 323 thou/uL (130-400); RBC Distribution Width 13.6 % (11.5-14.5); Red Blood Cell (RBC) Count 3.29 mill/uL (4.20-5.40); White Blood Cell (WBC) Count 7.3 thou/uL (4.8-10.8)
[2019-04-06 05:48] LABS: Anion Gap 15 mmol/L (10-20); BUN (Urea Nitrogen) 21 mg/dL (9.8-20.1); Calc. Creatinine Clearance 83 mL/min (70-130); Calcium 9.6 mg/dL (7.8-10.44); Carbon Dioxide 28 mmol/L (23-31); Chloride 105 mmol/L (98-107); Estimated GFR-MDRD 85; Glucose 122 mg/dL (80-115); Potassium 3.7 mmol/L (3.5-5.1); Sodium 144 mmol/L (136-145)
[2019-04-06] MEDS: Famotidine 20 MG TAB PER TUBE SCH ×2 (09:27→20:01)
--- NOTE | 2019-04-06 17:18 | PRG ---
DATE OF SERVICE: 04/06/2019 SUBJECTIVE: The patient is a 68-year-old female, undergoing rehabilitation following hospital stays for subarachnoid hemorrhage and hydrocephalus. The patient has been able to work with Physical Therapy and was able to walk some. An order for sitter was placed yesterday and currently there is a camera at bedside to monitor her. I am told that she was able to sleep a little bit better last night with the melatonin. OBJECTIVE: VITAL SIGNS: Temperature 96.4, pulse 74, respiration rate 18, O2 saturation 98% on room air. GENERAL: The patient is awake and alert and in no acute distress. CARDIOVASCULAR: Regular rate and rhythm without murmurs, gallops, or rubs. LUNGS: Clear to auscultation bilaterally without wheezing or rhonchi. ABDOMEN: Soft, nontender, nondistended. Bowel sounds present. EXTREMITIES: There is no clubbing, cyanosis, or edema. NEUROLOGIC: The patient continues to have a dysconjugate gaze and some left-sided weakness. LABORATORY DATA: 1. CBC: WBC 7.3, hemoglobin 10.1, hematocrit 31.8, platelets 323. 2. BMP: Sodium 144, potassium 3.7, chloride 105, bicarb 28, BUN 21, creatinine 0.69, glucose 122, calcium 9.6. ASSESSMENT AND PLAN: 1. Subarachnoid hemorrhage: The patient is participating with PT and OT. She is more tired this morning, but she just worked with Physical Therapy. 2. Hydrocephalus: The patient has a GARAGE MECHANIC shunt in place. She has followup being set up with Neurosurgery. 3. Dysphagia: The patient has been seen by Speech Therapy and a registered dietitian. The patient patient's swallowing is starting to return and Speech Therapy would like to try some ice chips with the patient. Dietary is also going to change the patient's feeds from continuous feeds to bolus feeds starting on 04/09 when we can come in. 4. Insomnia: Improved with melatonin. We will continue this. 5. Hypothyroidism: Continue supplementation. 6. Chronic obstructive pulmonary disease: We will monitor and have nebs as needed. 7. Generalized deconditioning: Continue therapy as above. Job ID: [id number]
[2019-04-06] MEDS: Melatonin 3 MG TAB PER TUBE PRN (20:02)
[2019-04-07] MEDS: niMODipine 30 MG CAP PO SCH ×6 (01:03→20:45)
[2019-04-07] MEDS: Levothyroxine Sodium 25 MCG TAB PO SCH (05:17)
[2019-04-07] MEDS: Famotidine 20 MG TAB PER TUBE SCH ×2 (08:49→20:46)
[2019-04-07] MEDS: Melatonin 3 MG TAB PER TUBE PRN (20:46)
[2019-04-08] MEDS: niMODipine 30 MG CAP PO SCH ×6 (01:01→20:17)
[2019-04-08] MEDS: Levothyroxine Sodium 25 MCG TAB PO SCH (05:04)
[2019-04-08] MEDS: Famotidine 20 MG TAB PER TUBE SCH ×2 (08:55→20:17)
--- NOTE | 2019-04-08 12:24 | PRG ---
DATE OF SERVICE: 04/08/2019 SUBJECTIVE: The patient is a 68-year-old female, undergoing rehabilitation. Nursing states that their primary issue is that she has been trying to get up out of bed and has almost fallen several times and trying to get out of bed. She does have a camera in her room and has a bed alarm in place. Several days ago, I wrote an order for a sitter at bedside, but that still has not been arranged. OBJECTIVE: VITAL SIGNS: Temperature 98.3, pulse 75, respiration rate 19, O2 saturation 96% on room air, and blood pressure 131/75. GENERAL: The patient is awake, alert, and oriented to person and place. The patient does still exhibit confusion and is difficult to understand her speech. CARDIOVASCULAR: Regular rate and rhythm without murmurs, gallops, or rubs. LUNGS: Clear to auscultation bilaterally without wheezing or rhonchi. ABDOMEN: Soft, nontender with PEG tube in place. EXTREMITIES: There is no clubbing or cyanosis. NEUROLOGIC: The patient has a dysconjugate gaze and left-sided weakness. The patient was seen ambulating with Physical Therapy. ASSESSMENT AND PLAN: 1. Subarachnoid hemorrhage: The patient will continue therapy services. 2. Dysphagia: Tube feeds will be changed to bolus feeding tomorrow. The patient will continue to work with Speech Therapy. She is able to have ice chips periodically. 3. Hypertension: Well controlled. 4. Generalized deconditioning: The patient will continue PT, OT, and speech therapy. 5. Hypothyroidism: Continue supplementation. 6. Chronic obstructive pulmonary disease: Continue nebs as needed. 7. Agitation: The patient would benefit from a sitter as she does not call for help when needed. The patient is trying to frequently get up to and go home, though she is not safe to do so. Job ID: [id number]
[2019-04-08] MEDS: Melatonin 3 MG TAB PER TUBE PRN (20:17)
[2019-04-09] MEDS: niMODipine 30 MG CAP PO SCH ×6 (00:58→19:54)
[2019-04-09] MEDS: Levothyroxine Sodium 25 MCG TAB PO SCH (05:10)
[2019-04-09] MEDS: Famotidine 20 MG TAB PER TUBE SCH ×2 (10:03→19:53)
--- NOTE | 2019-04-09 15:46 | PRG ---
DATE OF SERVICE: 04/09/2019 SUBJECTIVE: The patient is a 68-year-old female, undergoing rehabilitation. The patient is sitting up in bed, awake, and very interactive. She does complain of a mild headache this morning. OBJECTIVE: VITAL SIGNS: Temperature 97.2, pulse 74, respiration rate 20, O2 saturation 97% on room air, and blood pressure 128/71. GENERAL: The patient is awake, alert, and oriented to person and place. She is in no acute distress. CARDIOVASCULAR: Regular rate and rhythm without murmurs, gallops, or rubs. LUNGS: Clear to auscultation bilaterally without wheezing or rhonchi. HEAD: The patient still has two asha and a suture in place on her head. ABDOMEN: Soft, nontender, nondistended with PEG tube in place. EXTREMITIES: There is no clubbing, cyanosis, or edema. EYES: The patient has a dysconjugate gaze. NEURO: The patient still has some left-sided weakness. ASSESSMENT AND PLAN: 1. Subarachnoid hemorrhage: The patient's neuro status continues to improve. She will continue PT and OT. 2. Dysphagia: The patient is supposed to swap to bolus feeding today if the cans come in. Continue speech therapy to work with swallowing. Her speech is becoming much more intelligible. 3. Hypertension: Well controlled. 4. Chronic obstructive pulmonary disease. No signs of exacerbation. 5. Hypothyroidism: Continue supplementation. 6. Agitation: The patient is frequently trying to get up out of bed, stating that she wants to go home. We continue to reorient her and explain that she needs additional therapy before she is safe to go home. Job ID: [id number] [facility]
[2019-04-09] MEDS: Melatonin 3 MG TAB PER TUBE PRN (19:54)
[2019-04-10] MEDS: niMODipine 30 MG CAP PO SCH ×6 (00:04→20:16)
[2019-04-10] MEDS: Levothyroxine Sodium 25 MCG TAB PO SCH (05:06)
--- NOTE | 2019-04-10 08:36 | PRG ---
DATE OF SERVICE: 04/10/2019 SUBJECTIVE: The patient is a 68-year-old female undergoing rehabilitation. The patient is resting comfortably this morning, but awakens and states her headache has improved. She did note that she tried ice chips yesterday and states that she hope she can try coffee soon. OBJECTIVE: VITAL SIGNS: Temperature 97.8, pulse 71, respiration rate 18, O2 saturation 98% on room air, blood pressure 124/64. GENERAL: The patient was resting comfortably, but did awaken and is at her baseline. CARDIOVASCULAR: Regular rate and rhythm without murmurs, gallops, or rubs. LUNGS: Clear to auscultation bilaterally without wheezing or rhonchi. ABDOMEN: Soft, nontender, nondistended. PEG tube in place. EXTREMITIES: Reveals no clubbing, cyanosis, or edema. HEENT: Eyes; the patient has a dysconjugate gaze. She is wearing her glasses this morning. ASSESSMENT AND PLAN: 1. Status post subarachnoid hemorrhage: The patient is doing well with physical therapy and occupational therapy. 2. Dysphagia: The patient states she was able to tolerate the ice chips. She will continue to work with speech therapy. The patient is now getting bolus feeds and we will see how she does with this. 3. Hypertension: Blood pressure is well controlled. 4. Generalized deconditioning: The patient is improving with all therapy modalities. 5. Chronic obstructive pulmonary disease: Continue nebs as needed. 6. Agitation: The patient is doing well this morning. She does frequently try to get up out of bed and try to get home, and requires frequent reorientation. 7. Deep venous thrombosis prophylaxis with SCDs. 8. Gastrointestinal prophylaxis with famotidine. Job ID: [id number]
[2019-04-10] MEDS: Famotidine 20 MG TAB PER TUBE SCH ×2 (11:09→20:16)
[2019-04-10] MEDS: Melatonin 3 MG TAB PER TUBE PRN (20:16)
[2019-04-11] MEDS: niMODipine 30 MG CAP PO SCH ×6 (00:17→20:36)
[2019-04-11] MEDS: Levothyroxine Sodium 25 MCG TAB PO SCH (05:08)
[2019-04-11] MEDS: Famotidine 20 MG TAB PER TUBE SCH ×2 (08:30→20:36)
[2019-04-11] MEDS: Melatonin 3 MG TAB PER TUBE PRN (20:36)
[2019-04-11] MEDS: Acetaminophen 325 MG TAB PER TUBE PRN (20:37)
[2019-04-12] MEDS: niMODipine 30 MG CAP PO SCH ×6 (00:41→20:17)
[2019-04-12] MEDS: Levothyroxine Sodium 25 MCG TAB PO SCH (05:02)
[2019-04-12] MEDS: Famotidine 20 MG TAB PER TUBE SCH ×2 (08:39→20:17)
[2019-04-12] MEDS: Acetaminophen 325 MG TAB PER TUBE PRN (08:40)
--- NOTE | 2019-04-12 18:57 | PRG ---
DATE OF SERVICE: 04/12/2019 SUBJECTIVE: The patient is a 68-year-old female, who undergoing rehabilitation. The patient was on her phone when I walked in. The patient is complaining of double vision and symptoms gets worse with her glasses on. OBJECTIVE: VITAL SIGNS: Temperature 97.8, pulse 72, respiration rate 18, O2 saturation 98% on room air, and blood pressure 121/73. GENERAL: The patient is awake and alert and in no acute distress. CARDIOVASCULAR: Regular rate and rhythm without evidence of murmurs, gallops, or rubs. LUNGS: Clear to auscultation bilaterally without wheezing or rhonchi. ABDOMEN: Soft, nontender, and nondistended with PEG tube in place. EXTREMITIES: There were no clubbing, cyanosis, or edema. NEUROLOGIC: The patient continues to have a dysconjugate gaze. Speech is a little more clear today, but recall is poor. PSYCHIATRIC: The patient has emotional lability, begins crying with most questions asked to her. ASSESSMENT AND PLAN: 1. Subarachnoid hemorrhage status post coiling: The patient's blood pressure is well controlled. We will continue PT and OT. 2. Dysphagia: Continue speech therapy. We are working on titrating her bolus feeding. We will repeat BMP and CBC tomorrow. 3. Hypertension: Well controlled. 4. Hypothyroidism: Continue supplementation. 5. Chronic obstructive pulmonary disease: No signs of exacerbation. Job ID: [id number]
--- NOTE | 2019-04-12 19:17 | PRG ---
DATE OF SERVICE: 04/11/2019 SUBJECTIVE: The patient is a 68-year-old female undergoing rehabilitation. The patient was seen at approximately 1620 hours on . The patient's family has been back to see her this morning. The patient has already forgotten that they came down to see her. OBJECTIVE: VITAL SIGNS: Temperature 97.7, pulse 66, respiratory rate 18, O2 saturation 96% on room air, and blood pressure 128/58. GENERAL: The patient is awake, alert, and oriented to person and in no acute distress. CARDIOVASCULAR: Regular rate and rhythm without murmurs, gallops, rubs. LUNGS: Clear to auscultation bilaterally without wheezing or rhonchi. ABDOMEN: Soft, nontender, nondistended. Bowel sounds present. PEG tube is in place. EXTREMITIES: No clubbing, cyanosis, or edema. ASSESSMENT AND PLAN: 1. Subarachnoid hemorrhage: The patient will continue working with therapy. 2. Dysphagia: The patient's tube feeds are now swapped to bolus feeds. She is not currently having any residuals. 3. Generalized deconditioning: Continue therapy. 4. Hypothyroidism: Continue supplementation. 5. Agitation: The patient needs frequent reorientation. The patient had a camera in her room and had to monitor as she frequently tries to get up out of bed. Job ID: [id number]
[2019-04-12] MEDS: Melatonin 3 MG TAB PER TUBE PRN (20:17)
[2019-04-13] MEDS: niMODipine 30 MG CAP PO SCH ×6 (01:30→20:19)
[2019-04-13 05:25] LABS: #Basophils 0.1 thou/uL (0.0-0.2); #Eosinphils 0.1 thou/uL (0.0-0.7); #Monocytes 0.7 thou/uL (0.11-0.59); #Neutrophils 3.4 thou/uL (1.40-6.50); %Eosinophils 1.3 % (0.0-10.0); %Lymphocytes 31.9 % (21.0-51.0); %Monocytes 11.2 % (0.0-10.0); %Neutrophils 54.7 % (42.0-75.0); Hemoglobin 9.6 g/dL (12.0-16.0); Mean Corpuscular HGB CONC 30.8 g/dL (32.0-36.0); Mean Corpuscular Hemoglobin 30.6 pg (27.0-31.0); Mean Corpuscular Volume 99.5 fL (78.0-98.0); Mean Platelet Volume 8.7 fL (7.4-10.4); Platelet Count 243 thou/uL (130-400); RBC Distribution Width 14.4 % (11.5-14.5); Red Blood Cell (RBC) Count 3.12 mill/uL (4.20-5.40); White Blood Cell (WBC) Count 6.2 thou/uL (4.8-10.8)
[2019-04-13] MEDS: Levothyroxine Sodium 25 MCG TAB PO SCH (05:25)
[2019-04-13 05:34] LABS: Anion Gap 14 mmol/L (10-20); BUN (Urea Nitrogen) 12 mg/dL (9.8-20.1); Calc. Creatinine Clearance 82 mL/min (70-130); Calcium 8.7 mg/dL (7.8-10.44); Carbon Dioxide 24 mmol/L (23-31); Chloride 106 mmol/L (98-107); Estimated GFR-MDRD 88; Glucose 97 mg/dL (80-115); Potassium 3.9 mmol/L (3.5-5.1); Sodium 140 mmol/L (136-145)
[2019-04-13] MEDS: Famotidine 20 MG TAB PER TUBE SCH ×2 (08:56→20:20)
[2019-04-13] MEDS: Acetaminophen 325 MG TAB PER TUBE PRN ×2 (08:59→16:30)
[2019-04-13] MEDS: Melatonin 3 MG TAB PER TUBE PRN (20:19)
[2019-04-14] MEDS: niMODipine 30 MG CAP PO SCH ×6 (01:03→20:16)
[2019-04-14] MEDS: Levothyroxine Sodium 25 MCG TAB PO SCH (05:13)
[2019-04-14] MEDS: Famotidine 20 MG TAB PER TUBE SCH ×2 (08:55→20:17)
[2019-04-14] MEDS: Acetaminophen 325 MG TAB PER TUBE PRN (11:24)
[2019-04-14] MEDS: Melatonin 3 MG TAB PER TUBE PRN (20:16)
[2019-04-15] MEDS: niMODipine 30 MG CAP PO SCH ×3 (01:21→08:44)
[2019-04-15] MEDS: Levothyroxine Sodium 25 MCG TAB PO SCH (05:23)
[2019-04-15] MEDS: Acetaminophen 325 MG TAB PER TUBE PRN (08:44)
[2019-04-15] MEDS: Famotidine 20 MG TAB PER TUBE SCH ×2 (08:44→20:58)
[2019-04-15] MEDS ORDERED: Amlodipine 5 MG TAB PO SCH (10:00)
--- NOTE | 2019-04-15 10:18 | PRG ---
DATE OF SERVICE: 04/15/2019 SUBJECTIVE: The patient is a 68-year-old female, undergoing rehabilitation following subarachnoid hemorrhage and subsequent hydrocephalus. The patient has been doing well and tolerating tube feeds. The patient continues to reiterate she wants to go home. OBJECTIVE: VITAL SIGNS: Temperature 96.1, pulse 63, respiration rate 20, O2 saturation 97% on room air, blood pressure 127/65. GENERAL: The patient is awake, alert, and oriented, in no acute distress. CARDIOVASCULAR: Regular rate and rhythm without murmurs, gallops, or rubs. LUNGS: Clear to auscultation bilaterally without wheezing or rhonchi. ABDOMEN: Soft and nontender with PEG tube in place. EXTREMITIES: There is no clubbing, cyanosis, or edema. NEUROLOGIC: The patient continues to have dysconjugate gaze. PSYCHIATRIC: The patient's emotions are quite labile. While talking to you, she will start crying in the middle of the sentence. LABORATORY DATA: CBC: WBC 6.2, hemoglobin 9.6, hematocrit 31.0, and platelet count 243. BMP: Sodium 140, potassium 3.9, chloride 106, bicarb 24, BUN 12, creatinine 0.67, glucose 97, calcium 8.7. ASSESSMENT AND PLAN: 1. Subarachnoid hemorrhage with hydrocephalus: The patient continues to require therapy services. In the coming week, we will discuss with PT what their recommendations are regarding possible discharge. 2. Dysphagia: The patient is tolerating tube feeds well. Continue speech therapy to help with swallowing. 3. Hypertension: The patient has been on nimodipine for several weeks and is ready to transition to a different oral antihypertensive. We will look at starting amlodipine. 4. Chronic obstructive pulmonary disease: No signs of exacerbation. Nebs ordered as needed. 5. Hypothyroidism: Continue supplementation. Job ID: [id number]
[2019-04-15] MEDS: Melatonin 3 MG TAB PER TUBE PRN (20:58)
[2019-04-16] MEDS: Levothyroxine Sodium 25 MCG TAB PO SCH (06:07)
[2019-04-16] MEDS: Amlodipine 5 MG TAB PO SCH (09:01)
[2019-04-16] MEDS: Famotidine 20 MG TAB PER TUBE SCH ×2 (09:01→20:50)
[2019-04-16] MEDS ORDERED: Loperamide HCl 2 MG CAP PER TUBE PRN (09:48)
--- NOTE | 2019-04-16 10:07 | PRG ---
DATE OF SERVICE: 04/16/2019 SUBJECTIVE: The patient is a 68-year-old female undergoing rehabilitation following two hospital stays for a subarachnoid hemorrhage and then hydrocephalus. The patient's sutures are ready to come out today. Nursing did note that the patient has had some loose stools overnight. OBJECTIVE: VITAL SIGNS: Temp 98.1, pulse 71, respiration rate 18, O2 saturation 97% on room air, blood pressure 137/76. GENERAL: The patient is awake and alert and in no acute distress. CARDIOVASCULAR: Regular rate and rhythm without murmurs, gallops, rubs. LUNGS: Clear to auscultation bilaterally without wheezing or rhonchi. ABDOMEN: Soft, nontender, nondistended with a PEG tube in place. The patient has normoactive bowel sounds. EXTREMITIES: There is no clubbing, cyanosis, or edema. ASSESSMENT AND PLAN: 1. Subarachnoid hemorrhage with hydrocephalus: Outpatient followup with Neurosurgery has been scheduled. The patient will continue PT and OT. 2. Dysphagia: Continue speech therapy to work with swallowing. The patient is tolerating her tube feeds well. 3. Diarrhea: This may be due to her tube feeds. We will have Imodium p.r.n. The patient is afebrile and has no abdominal pain. 4. Hypertension: The patient's blood pressure is stable with amlodipine. 5. Hypothyroidism: Continue supplementation. Job ID: [id number]
[2019-04-16] MEDS: Melatonin 3 MG TAB PER TUBE PRN (20:50)
[2019-04-17] MEDS: Levothyroxine Sodium 25 MCG TAB PO SCH (05:20)
[2019-04-17] MEDS: Famotidine 20 MG TAB PER TUBE SCH ×2 (09:24→20:50)
[2019-04-17] MEDS: Amlodipine 5 MG TAB PO SCH (09:24)
--- NOTE | 2019-04-17 17:38 | PRG ---
DATE OF SERVICE: 04/17/2019 SUBJECTIVE: The patient is a 68-year-old female who is undergoing rehabilitation. This patient has been quite well. Facial Therapy put a piece of tape over her left glasses and she said she is no longer seeing devil. The patient is eager to go home. Speech therapy is not seeing her this week to my knowledge. OBJECTIVE: VITAL SIGNS: Temp 97.6, pulse 76, respiration rate 18, O2 saturation 95% on room air, and blood pressure 127/68. GENERAL: The patient is awake and alert, in no acute distress. CARDIOVASCULAR: Regular rate and rhythm without murmurs, gallops, or rubs. LUNGS: Clear to auscultation bilaterally without wheezing or rhonchi. ABDOMEN: Soft and nontender with PEG tube in place. EXTREMITIES: No clubbing, cyanosis, or edema. NEUROLOGIC: The patient has a dysconjugate gaze. ASSESSMENT AND PLAN: 1. Subarachnoid hemorrhage with hydrocephalus: The patient is doing well with PT and OT. protection manager is working on getting home health set up for the patient. 2. Dysphagia: Waiting for Speech Therapy to evaluate the patient again to see if she is safe to swallow anything. Her cognition has definitely improved, and I am hopeful that she can start swallowing soon. 3. Hypertension: Blood pressure is well controlled with amlodipine. 4. Hypothyroidism: Continue supplementation. 5. Urinary retention: The patient continues to have a Wells in place. In the coming days, hope to do bladder trial to see if we can remove the Wells. Job ID: [id number]
[2019-04-17] MEDS: Melatonin 3 MG TAB PER TUBE PRN (20:50)
[2019-04-18] MEDS: Levothyroxine Sodium 25 MCG TAB PO SCH (05:02)
[2019-04-18] MEDS: Famotidine 20 MG TAB PER TUBE SCH ×2 (08:07→20:17)
[2019-04-18] MEDS: Amlodipine 5 MG TAB PO SCH (08:07)
[2019-04-18] MEDS: Acetaminophen 325 MG TAB PER TUBE PRN (18:06)
[2019-04-18] MEDS: Melatonin 3 MG TAB PER TUBE PRN (20:17)
[2019-04-19] MEDS: Levothyroxine Sodium 25 MCG TAB PO SCH (05:09)
[2019-04-19] MEDS: Amlodipine 5 MG TAB PO SCH (09:01)
[2019-04-19] MEDS: Famotidine 20 MG TAB PER TUBE SCH ×2 (09:01→20:15)
--- NOTE | 2019-04-19 15:19 | PRG ---
DATE OF SERVICE: 04/19/2019 SUBJECTIVE: The patient is a 68-year-old female, undergoing rehabilitation following subarachnoid hemorrhage and hydrocephalus. The patient is up walking with Physical Therapy and I saw her walking several laps. She does rest when she gets tired. The patient is eager to go home, and I am told that her was here this morning and initially was upset because he wanted her to go home sooner, but when we explained that we are evaluating her swallowing tomorrow and that if we let her eat and she is not safe to eat that she could have a pneumonia and have a further setback, and he voiced understanding. OBJECTIVE: VITAL SIGNS: Temperature 98.4, pulse 76, respiration rate 18, O2 saturation 97% on room air, and blood pressure 129/64. GENERAL: The patient is awake, alert, in no acute distress. CARDIOVASCULAR: Regular rate and rhythm without murmurs, gallops, or rubs. LUNGS: Clear to auscultation bilaterally. No wheezing or rhonchi. ABDOMEN: Soft, nontender, and nondistended. EXTREMITIES: There was no clubbing, cyanosis, or edema. NEUROLOGIC: The patient continues to have a dysconjugate gaze and somewhat slurred speech. ASSESSMENT AND PLAN: 1. Subarachnoid hemorrhage with hydrocephalus: The patient has Neurosurgery followup in the coming weeks. The patient is doing very well with PT and OT. They are still working on safety awareness. The patient does need cuing at times as she has some short-term memory problems, which is expected with the severity of the stroke that she had. 2. Dysphagia: The patient is tolerating tube feeds. The patient is scheduled for modified barium swallow to be done tomorrow. I spoke with the speech therapist who based on those results, will likely do some VitalStim to try to help with swallowing. Our ultimate goal is to get the patient to go home. However, we want to make certain that she is safe when she does so. 3. Hypertension: Well controlled. 4. Hypothyroidism: Continue supplementation. 5. Chronic obstructive pulmonary disease: The patient is doing well. Job ID: [id number] [facility]
[2019-04-19] MEDS: Melatonin 3 MG TAB PER TUBE PRN (20:15)
[2019-04-20] MEDS: Levothyroxine Sodium 25 MCG TAB PO SCH (04:55)
[2019-04-20] MEDS: Amlodipine 5 MG TAB PO SCH (04:55)
[2019-04-20] MEDS: Acetaminophen 325 MG TAB PER TUBE PRN ×2 (04:55→12:00)
[2019-04-20] MEDS: Famotidine 20 MG TAB PER TUBE SCH ×2 (04:55→20:40)
--- NOTE | 2019-04-20 10:52 | RAD ---
MODIFIED BARIUM SWALLOW IN PRESENCE OF SPEECH THERAPIST: HISTORY: Dysphagia, feeding difficulties FINDINGS: Laryngeal penetration or aspiration is seen. Persistent pooling of contrast is seen in the valleculae or piriform sinuses. Please see recommendations of the speech therapist for further management.
[2019-04-20] MEDS: Melatonin 3 MG TAB PER TUBE PRN (20:41)
[2019-04-21] MEDS: Levothyroxine Sodium 25 MCG TAB PO SCH (05:10)
[2019-04-21] MEDS: Famotidine 20 MG TAB PER TUBE SCH ×2 (08:57→20:31)
[2019-04-21] MEDS: Amlodipine 5 MG TAB PO SCH (08:57)
[2019-04-21] MEDS: Acetaminophen 325 MG TAB PER TUBE PRN ×2 (09:00→16:24)
--- NOTE | 2019-04-21 12:56 | PRG ---
DATE OF SERVICE: 04/21/2019 SUBJECTIVE: The patient is a 68-year-old female, here for rehabilitation following subarachnoid hemorrhage and hydrocephalus. The patient had a modified barium swallow yesterday and has been cleared for eating. Speech Therapy recommended chopped meats and thickened liquids. The patient has done well as far as eating is concerned. She is extremely happy this morning that she is able to eat. Nursing is teaching her on how to thicken her liquids. OBJECTIVE: VITAL SIGNS: Temperature 98.0, pulse 67, respiration rate 18, O2 saturation 97% on room air, and blood pressure 117/54. GENERAL: The patient is awake, alert, oriented, and in no acute distress. CARDIOVASCULAR: Regular rate and rhythm without murmurs, gallops, or rubs. LUNGS: Clear to auscultation bilaterally without wheezing or rhonchi. ABDOMEN: Soft, nontender, nondistended with bowel sounds present. EXTREMITIES: There is no clubbing or cyanosis. NEUROLOGIC: The patient still has a dysconjugate gaze. ASSESSMENT AND PLAN: 1. Subarachnoid hemorrhage with hydrocephalus: The patient has followup with Neurosurgery on the 01 of May. The patient is doing very well with therapy. 2. Dysphagia: The patient has now passed her swallow study and is seen eating lunch this morning. She is doing quite well. 3. Urinary retention: We will clamp the Wells throughout the day and try to discontinue her Wells later today and monitor voiding. 4. Hypertension: Blood pressure is well controlled with amlodipine. 5. Hypothyroidism: Continue supplementation. 6. Disposition: I anticipate that the patient will likely be able to go home in the middle of the next week. My hope is that we are able to get her Wells out and continue to teach her how to eat safely and make certain she understands the need to continue with the thickened liquids. Continue some therapy. We had a discussion on the importance of continuing therapy once she is discharged either with Home Health or with outpatient therapy, and she voiced understanding. Job ID: [id number]
[2019-04-22] MEDS: Levothyroxine Sodium 25 MCG TAB PO SCH (05:34)
[2019-04-22] MEDS: Acetaminophen 325 MG TAB PER TUBE PRN ×3 (05:34→20:52)
[2019-04-22 05:36] LABS: #Basophils 0.1 thou/uL (0.0-0.2); #Eosinphils 0.1 thou/uL (0.0-0.7); #Lymphocytes 2.2 thou/uL (1.20-3.40); #Monocytes 0.6 thou/uL (0.11-0.59); #Neutrophils 3.8 thou/uL (1.40-6.50); %Basophils 0.9 % (0.0-1.0); %Eosinophils 1.7 % (0.0-10.0); %Monocytes 9.3 % (0.0-10.0); %Neutrophils 56.2 % (42.0-75.0); Mean Corpuscular HGB CONC 32.4 g/dL (32.0-36.0); Mean Corpuscular Hemoglobin 30.9 pg (27.0-31.0); Mean Corpuscular Volume 95.5 fL (78.0-98.0); Mean Platelet Volume 8.5 fL (7.4-10.4); Platelet Count 259 thou/uL (130-400); RBC Distribution Width 14.4 % (11.5-14.5); Red Blood Cell (RBC) Count 3.22 mill/uL (4.20-5.40); White Blood Cell (WBC) Count 6.8 thou/uL (4.8-10.8)
[2019-04-22 05:52] LABS: Anion Gap 13 mmol/L (10-20); BUN (Urea Nitrogen) 11 mg/dL (9.8-20.1); Calc. Creatinine Clearance 81 mL/min (70-130); Calcium 9.2 mg/dL (7.8-10.44); Carbon Dioxide 25 mmol/L (23-31); Chloride 106 mmol/L (98-107); Estimated GFR-MDRD 86; Glucose 89 mg/dL (80-115); Potassium 3.8 mmol/L (3.5-5.1); Sodium 140 mmol/L (136-145)
[2019-04-22] MEDS: Amlodipine 5 MG TAB PO SCH (08:53)
[2019-04-22] MEDS: Famotidine 20 MG TAB PER TUBE SCH ×2 (08:53→20:52)
[2019-04-22] MEDS ORDERED: Bisacodyl 10 MG SUPP PR SCH (13:45)
--- NOTE | 2019-04-22 20:35 | PRG ---
DATE OF SERVICE: 04/22/2019 SUBJECTIVE: The patient is a 68-year-old female, undergoing rehabilitation following subarachnoid hemorrhage and hydrocephalus. The patient continues to do well. She is tolerating her diet well. The bladder training has been started. The patient's Wells has been clamped off and on; however, the patient currently has no sensation of any bladder fullness. I discussed this with the patient in with a nurse, and we are going to attempt to remove her Wells later on today and see if she is able to void or not. If she is not successful with this , Wells will be replaced, and she will likely need to be discharged from the hospital with her Wells. OBJECTIVE: VITAL SIGNS: Temperature 96.4, pulse 69, respiration rate 18, O2 saturation 98% on room air, and blood pressure 118/60. GENERAL: The patient is awake, alert, and oriented, in no acute distress. CARDIOVASCULAR: Regular rate and rhythm without murmurs, gallops, or rubs. LUNGS: Clear to auscultation bilaterally without wheezing or rhonchi. ABDOMEN: Soft, nontender, nondistended with PEG tube in place. EXTREMITIES: There is no clubbing, cyanosis, or edema. LABORATORY DATA: CBC: WBCs 6.8, hemoglobin 10.7, hematocrit 30.7, and platelet count 259. BMP: Sodium 140, potassium 3.8, chloride 106, bicarb 25, BUN 11, creatinine 0.68, glucose 89, and calcium 9.2. TSH 5.7903. ASSESSMENT AND PLAN: 1. Subarachnoid hemorrhage with hydrocephalus: The patient continues to do well from a Rehabilitation standpoint. She does have some short-term memory loss that she is aware of this. She states she has to repeat things over and over to herself, so that she does not forget them. We are working for discharge hopefully in the coming week. 2. Dysphagia: The patient is eating well. She does require thickened liquids and is learning how to do this herself. She understands that she is going to need to do this when she is at home where she is at risk for aspiration pneumonia. 3. Hypothyroidism: The patient's TSH is elevated. I will adjust her thyroid medication appropriately. 4. Hypertension: Blood pressure is well controlled. 5. Chronic obstructive pulmonary disease: Stable. No signs of exacerbation. 6. Urinary retention: The patient has Wells in place. We are continuing bladder training. We will attempt to remove her Wells today. We will monitor to see if she is able to void. The patient does have followup with Urology in the next few weeks. 7. I had a long discussion with the patient as the patient's has questioned the nursing staff many times about whether she can start smoking and marijuana again when she goes home. I have advised her against that she has had this recent insult to the brain, and we want to give her the best chance at recovery. The patient has voiced her understanding. She states that she has thought about it herself and wants to avoid marijuana for at least 6 months to see how she does. She states she has not talked with her about this, but she has made up her mind. I encouraged her to follow through with that plan as I do not think marijuana use will help in her recovery. 8. Disposition: I will talk with therapy staff tomorrow. The patient is eager to go home and now that she is able to eat. She will need home health with continued PT, OT, and Speech Therapy. I will discuss with therapy when they think a safe discharge might be. Job ID: [id number] [facility]
[2019-04-23 03:40] LABS: Bilirubin Negative (Negative); Blood, Urine Trace (Negative); Clarity Clear (Clear); Glucose, Urine (Dipstick) Negative (Negative); Leukocyte Moderate (Negative); Nitrite Positive (Negative); Protein, Urine (Dipstick) Negative (Neg-Trace); Urobilinogen 0.2 mg/dL (Less than 2)
[2019-04-23 03:45] LABS: Bacteria/HPF 4+ HPF (None Seen)
[2019-04-23] MEDS: Levothyroxine Sodium 50 MCG TAB PO SCH (05:31)
[2019-04-23] MEDS: Acetaminophen 325 MG TAB PER TUBE PRN ×2 (05:31→19:29)
[2019-04-23] MEDS: Amlodipine 5 MG TAB PO SCH (08:31)
[2019-04-23] MEDS: Famotidine 20 MG TAB PER TUBE SCH ×2 (08:31→19:28)
--- NOTE | 2019-04-23 17:37 | PRG ---
DATE OF SERVICE: 04/23/2019 SUBJECTIVE: The patient is a 68-year-old female, undergoing rehabilitation at [facility]. The patient is sitting up in a chair today. She did have her Wells removed overnight and has been able to void since its removal. We will continue to monitor this throughout the day. The patient reiterates her desire to go home as soon as possible. I was able to speak with the physical therapy staff this morning and they do think that she would benefit from continued therapy especially in order for her to be safe going home. The recommendation is that we continue physical therapy here for a period of time. We will try to discuss this with the patient and family about a safe discharge plan. OBJECTIVE: VITALS SIGNS: Temp 98.2, pulse 75, respiration rate 20, O2 saturation 98% on room air, blood pressure 117/67. GENERAL: The patient is awake, alert, oriented, in no acute distress. CARDIOVASCULAR: Regular rate and rhythm without murmurs, gallops, rubs. LUNGS: Clear to auscultation bilaterally without wheezing or rhonchi. ABDOMEN: Soft, nontender, nondistended with bowel sounds present. EXTREMITIES: No clubbing, cyanosis, or edema. LABORATORY DATA: UA is positive for trace blood, nitrites, 4+ bacteria, and leukocyte esterase. ASSESSMENT AND PLAN: 1. Subarachnoid hemorrhage with hydrocephalus: The patient would benefit from continued PT and OT. She is still not able to walk independently safely. At this point, our recommendation is to continue the therapy and I discussed this with the patient this morning. 2. Dysphagia: The patient is now eating very well. She is still having thickened liquids. Patient will benefit from continued speech therapy. 3. Abnormal UA: The patient is having some strong smelling urine, Wells was removed. The UA was obtained. I will culture the patient's urine. 4. Hypertension: Well controlled. 5. Urinary retention: The patient has been able to void since Wells is removed. We will continue to monitor this throughout the coming days. 6. Hypothyroidism: Continue supplementation. Job ID: [id number]
--- NOTE | 2019-04-23 18:26 | CT ---
CT HEAD WITHOUT CONTRAST: HISTORY: Follow up subarachnoid hemorrhage. COMPARISON: 03/25/2019 FINDINGS: There has been interval removal of the right frontal ventriculostomy catheter with interval placement of a right sided ventriculoperitoneal shunt catheter, entering via a right parietal approach, with t he tip at the medial aspect of the right lateral ventricle. There has been considerable decrease in s ize in the ventriculomegaly noted on the prior exam. Linear calcification is again seen in the right anterior frontal lobe, stable from prior exam. There is no evidence of an acute cortical infarction, hemorrhage, mass effect or midline shift. 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 No other interval change. IMPRESSION: 1. Interval placement of a right sided ventriculoperitoneal shunt catheter with interval decrease in ventriculomegaly. There is no evidence of hydrocephalus on today's examination. 2. No intraparenchymal or extraaxial hemorrhage is appreciated. POS: [facility]
[2019-04-23] MEDS: Melatonin 3 MG TAB PER TUBE PRN (19:28)
[2019-04-24] MEDS: Levothyroxine Sodium 50 MCG TAB PO SCH (04:35)
[2019-04-24] MEDS: Acetaminophen 325 MG TAB PER TUBE PRN ×3 (04:36→19:52)
[2019-04-24] MEDS: Amlodipine 5 MG TAB PO SCH (08:32)
[2019-04-24] MEDS: Famotidine 20 MG TAB PER TUBE SCH ×2 (08:32→19:52)
--- NOTE | 2019-04-24 13:04 | PRG ---
DATE OF SERVICE: 04/24/2019 SUBJECTIVE: The patient is a 68-year-old female, undergoing rehabilitation. The patient was seen down in therapy by using an exercise bike. She does note that she is continuing to have some double vision and this affects her balance. She asks as usual when she can go home, but when we talked about the importance of safety, she voiced understanding. OBJECTIVE: VITAL SIGNS: Temperature 97.0, pulse 70, respiration rate 18, O2 saturations 94% on room air, blood pressure 136/72. GENERAL: The patient is awake and alert and in no acute distress. CARDIOVASCULAR: Regular rate and rhythm without murmurs, gallops, or rubs. LUNGS: Clear to auscultation bilaterally without wheezing or rhonchi. ABDOMEN: Soft, nontender, nondistended. Bowel sounds are present. EXTREMITIES: No clubbing, cyanosis, or edema. IMAGING STUDIES: Repeat CT of the head demonstrates PROPERTY UTILIZATION MANAGER shunt with a decrease in her ventriculomegaly. There is no evidence of hydrocephalus on the CT scan. No intraparenchymal or extra-axial hemorrhage was noted. ASSESSMENT AND PLAN: 1. Subarachnoid hemorrhage with hydrocephalus: The patient's CT from yesterday shows improvement in the hydrocephalus. She is doing well with therapy, but would continue to benefit on improving strength and safety. 2. Dysphagia: The patient is tolerating oral foods well. She is continuing to thicken her liquids. Continue speech therapy. 3. Abnormal UA: Urine culture still pending. 4. Hypertension: Blood pressure is well controlled. Continue amlodipine. 5. Hypothyroidism: Continue supplementation. Job ID: [id number]
[2019-04-24] MEDS: Melatonin 3 MG TAB PER TUBE PRN (19:52)
[2019-04-25] MEDS: Acetaminophen 325 MG TAB PER TUBE PRN ×3 (01:28→19:38)
[2019-04-25] MEDS: Levothyroxine Sodium 50 MCG TAB PO SCH (05:09)
[2019-04-25] MEDS: Famotidine 20 MG TAB PER TUBE SCH ×2 (08:14→19:38)
[2019-04-25] MEDS: Amlodipine 5 MG TAB PO SCH (08:15)
[2019-04-25] MEDS: Melatonin 3 MG TAB PER TUBE PRN (19:39)
[2019-04-26] MEDS: Acetaminophen 325 MG TAB PER TUBE PRN ×3 (02:52→16:09)
[2019-04-26] MEDS: Levothyroxine Sodium 50 MCG TAB PO SCH (04:54)
[2019-04-26] MEDS: Famotidine 20 MG TAB PER TUBE SCH ×2 (08:09→20:36)
[2019-04-26] MEDS: Amlodipine 5 MG TAB PO SCH (08:09)
--- NOTE | 2019-04-26 09:39 | PRG ---
DATE OF SERVICE: 04/25/2019 SUBJECTIVE: The patient is a 68-year-old female, undergoing rehabilitation following subarachnoid hemorrhage and hydrocephalus. The patient tonight states she is understanding her need to be here for additional therapy. She knows that she is getting stronger, but her balance is off. She is continuing to have problems with double vision. OBJECTIVE: VITAL SIGNS: Temperature 98.4, pulse rate 75, respiratory rate 18, O2 saturation 98% on room air, and blood pressure 109/57. GENERAL: The patient is awake, alert, oriented, and in no acute distress. CARDIOVASCULAR: Regular rate and rhythm without murmurs, gallops, or rubs. LUNGS: Clear to auscultation bilaterally without wheezing or rhonchi. ABDOMEN: Soft, nontender, and nondistended with bowel sounds present. EXTREMITIES: There is no clubbing, cyanosis, or edema. ASSESSMENT AND PLAN: 1. Subarachnoid hemorrhage: The patient will continue PT and OT. She is continuing to make progress and is getting stronger. 2. Dysphagia: The patient is tolerating her diet well. We will continue to monitor. 3. Hypertension: Blood pressure is well controlled. 4. Urinary incontinence: Resolved. Wells is out and the patient has been able to void normally. 5. Double vision: We will try to get the patient an appointment with Optometry to evaluate vision and see if there is anything we can do to try to help with her double vision. 6. Hypothyroidism: Continue supplementation. Job ID: [id number]
--- NOTE | 2019-04-26 10:49 | PRG ---
DATE OF SERVICE: 04/26/2019 SUBJECTIVE: The patient is a 68-year-old female undergoing rehabilitation. The patient states she slept well overnight and is feeling good this morning. She is about to begin working with therapy. OBJECTIVE: VITAL SIGNS: Temperature 98.2, pulse 74, respiration rate 18, O2 saturation 95% on room air, and blood pressure 125/70. GENERAL: The patient is awake, alert, and in no acute distress. CARDIOVASCULAR: Regular rate and rhythm without murmurs, gallops, or rubs. LUNGS: Clear to auscultation bilaterally without wheezing or rhonchi. ABDOMEN: Soft, nontender, and nondistended. Bowel sounds present. EXTREMITIES: There is no clubbing, cyanosis, or edema. LABORATORY DATA: Urine culture is growing E. coli, her sensitivities to follow. ASSESSMENT AND PLAN: 1. Subarachnoid hemorrhage with hydrocephalus: The patient is doing well with therapy. We are continuing this as we are still working on goals to make certain the patient is safe with balance. 2. Dysphagia: The patient is continuing speech therapy. She is still getting her liquids. 3. Hypertension: Well controlled. 4. Escherichia coli urinary tract infection: CFUs of 25,000 to 50,000. Sensitivities are still pending at this time. We will await the sensitivities for antibiotics. 5. Hypothyroidism: Continue supplementation. 6. Double vision: We will set up eye appointment. Job ID: [id number]
[2019-04-26] MEDS: traMADol HCl 50 MG TAB PO PRN (17:39)
[2019-04-26] MEDS: Melatonin 3 MG TAB PER TUBE PRN (20:38)
[2019-04-27] MEDS: Levothyroxine Sodium 50 MCG TAB PO SCH (05:41)
[2019-04-27] MEDS: Amlodipine 5 MG TAB PO SCH (08:44)
[2019-04-27] MEDS: Acetaminophen 325 MG TAB PER TUBE PRN ×2 (08:44→18:00)
[2019-04-27] MEDS: Famotidine 20 MG TAB PER TUBE SCH ×2 (08:44→20:45)
[2019-04-27] MEDS: traMADol HCl 50 MG TAB PO PRN (13:53)
[2019-04-27] MEDS: Ciprofloxacin 500 MG TAB PO SCH (20:45)
--- NOTE | 2019-04-27 21:15 | PRG ---
DATE OF SERVICE: 04/27/2019 SUBJECTIVE: The patient is a 68-year-old female, undergoing rehabilitation following a subarachnoid hemorrhage. The patient was seen sitting in chair in the lobby. She has been walking with physical therapy. Working on her gait to be stronger and more steady. She has appointment today with ophthalmetry to better evaluate her double vision. OBJECTIVE: VITAL SIGNS: Temperature 97.1, pulse 67, respiratory rate 18, O2 saturation 95% on room air, blood pressure 122/59. GENERAL: The patient is awake and alert, in no acute distress. CARDIOVASCULAR: Regular rate and rhythm without murmurs, gallops, or rubs. LUNGS: Clear to auscultation bilaterally without wheezing or rhonchi. ABDOMEN: Soft, nontender, nondistended. Bowel sounds present. EXTREMITIES: No clubbing, cyanosis, or edema. LABORATORY DATA: Urine culture positive for E coli, which is pansensitive. ASSESSMENT AND PLAN: 1. Subarachnoid hemorrhage with hydrocephalus: The patient is doing well in physical therapy and continues to benefit and is working on safety measures at this point. 2. Dysphagia: The patient is continuing taking liquids and will continue to see speech therapy. 3. Double vision: The patient has eye appointment today and we will see if they have any recommendations from us. 4. Hypertension: Blood pressure is well controlled. 5. Hypothyroidism: Continue supplementation. 6. Urinary tract infection: We will treat the patient with Cipro 500 mg one p.o. b.i.d. for 3 days. Job ID: [id number]
[2019-04-28] MEDS: Levothyroxine Sodium 50 MCG TAB PO SCH (05:25)
[2019-04-28] MEDS: Ciprofloxacin 500 MG TAB PO SCH ×2 (05:25→19:38)
[2019-04-28] MEDS: Famotidine 20 MG TAB PER TUBE SCH ×2 (08:46→20:34)
[2019-04-28] MEDS: Amlodipine 5 MG TAB PO SCH (08:47)
[2019-04-28] MEDS: traMADol HCl 50 MG TAB PO PRN (19:37)
[2019-04-28] MEDS: Acetaminophen 325 MG TAB PER TUBE PRN (20:34)
[2019-04-29] MEDS: Ciprofloxacin 500 MG TAB PO SCH ×2 (06:08→20:51)
[2019-04-29] MEDS: Acetaminophen 325 MG TAB PER TUBE PRN ×3 (06:09→21:40)
[2019-04-29] MEDS: Levothyroxine Sodium 50 MCG TAB PO SCH (06:09)
[2019-04-29] MEDS: Amlodipine 5 MG TAB PO SCH (08:44)
[2019-04-29] MEDS: Famotidine 20 MG TAB PER TUBE SCH ×2 (08:44→20:51)
[2019-04-29] MEDS: traMADol HCl 50 MG TAB PO PRN (18:14)
[2019-04-29] MEDS: Melatonin 3 MG TAB PER TUBE PRN (21:39)
[2019-04-30] MEDS: Ciprofloxacin 500 MG TAB PO SCH (05:33)
[2019-04-30] MEDS: Levothyroxine Sodium 50 MCG TAB PO SCH (05:33)
[2019-04-30] MEDS: Acetaminophen 325 MG TAB PER TUBE PRN (09:25)
[2019-04-30] MEDS: Famotidine 20 MG TAB PER TUBE SCH ×2 (09:26→21:01)
[2019-04-30] MEDS ORDERED: Amlodipine 5 MG TAB ONE (10:14)
[2019-04-30] MEDS: Amlodipine 5 MG TAB PO SCH (11:11)
[2019-04-30] MEDS: traMADol HCl 50 MG TAB PO PRN ×2 (11:13→22:20)
--- NOTE | 2019-04-30 12:11 | PRG ---
DATE OF SERVICE: 04/29/2019 SUBJECTIVE: The patient is a 68-year-old female, undergoing rehabilitation following hospitalization for subarachnoid hemorrhage and hydrocephalus. The patient was able to go see the eye doctor on Tuesday. However, she cannot tell me what they said and there were no notes sent back with her. OBJECTIVE: VITAL SIGNS: Temperature 97.8, pulse 67, respiration rate 16, O2 saturation 95% on room air, blood pressure 110/59. GENERAL: The patient is awake and alert, in no acute distress. CARDIOVASCULAR: Regular rate and rhythm without murmurs, gallops, or rubs. LUNGS: Clear to auscultation bilaterally without wheezing or rhonchi. ABDOMEN: Soft, nontender with PEG tube in place. EXTREMITIES: No clubbing, cyanosis, or edema. ASSESSMENT AND PLAN: 1. Subarachnoid hemorrhage with hydrocephalus: The patient is continuing to do well with PT and OT. We will see in the coming week what therapy thinks the discharge plan would be. 2. Dysphagia: The patient is tolerating oral diet. Speech Therapy is continuing to work to help with swallowing. She still is on thickened liquids. The patient does remember to call nursing staff to help her thicken her liquids. 3. Hypertension, well controlled with amlodipine. 4. Urinary tract infection: The patient's symptoms are resolving with antibiotics. 5. Hypothyroidism: Continue supplementation. Job ID: [id number] [facility]
--- NOTE | 2019-04-30 12:21 | PRG ---
DATE OF SERVICE: 04/30/2019 SUBJECTIVE: The patient is a 68-year-old female, undergoing rehabilitation. The patient complains of a headache this morning and has not yet received anything for it. She got scratch on the right side of her head. She states she still has double vision, but overall her vision is a little bit better this morning. OBJECTIVE: VITAL SIGNS: Temperature 98.1, pulse 73, respiration rate 16, O2 saturation 95% on room air, blood pressure 120/66. GENERAL: The patient is awake, alert, oriented, and in no acute distress. CARDIOVASCULAR: Regular rate and rhythm without murmurs, gallops, or rubs. LUNGS: Clear to auscultation bilaterally without wheezing or rhonchi. ABDOMEN: Soft, nontender, nondistended with bowel sounds present. PEG tube is in place. EXTREMITIES: No clubbing, cyanosis, or edema. ASSESSMENT AND PLAN: 1. Subarachnoid hemorrhage with hydrocephalus: The patient has a SEMICONDUCTOR WAFER INSPECTOR shunt in place. She will continue PT and OT. 2. Dysphagia: Continue speech therapy. 3. Headache: We will give a dose of Tylenol. If it does not work, we will try tramadol. 4. Hypothyroidism: Continue supplementation. 5. Hypertension: Continue amlodipine. 6. Urinary tract infection: The patient will finish antibiotics today. Job ID: [id number]
[2019-04-30] MEDS: Melatonin 3 MG TAB PER TUBE PRN (21:01)
[2019-05-01] MEDS: Levothyroxine Sodium 50 MCG TAB PO SCH (05:15)
[2019-05-01] MEDS: traMADol HCl 50 MG TAB PO PRN ×2 (05:18→21:03)
[2019-05-01] MEDS: Amlodipine 5 MG TAB PO SCH ×2 (10:27→10:57)
[2019-05-01] MEDS: Famotidine 20 MG TAB PER TUBE SCH ×3 (10:27→21:03)
[2019-05-01] MEDS: Acetaminophen 325 MG TAB PER TUBE PRN (10:59)
[2019-05-01] MEDS: Melatonin 3 MG TAB PER TUBE PRN (21:03)
[2019-05-02] MEDS: Levothyroxine Sodium 50 MCG TAB PO SCH (05:08)
[2019-05-02] MEDS: Famotidine 20 MG TAB PER TUBE SCH ×2 (07:52→20:10)
[2019-05-02] MEDS: Amlodipine 5 MG TAB PO SCH (07:52)
[2019-05-02] MEDS: Acetaminophen 325 MG TAB PER TUBE PRN ×2 (07:54→20:11)
[2019-05-02] MEDS: traMADol HCl 50 MG TAB PO PRN (16:15)
[2019-05-02] MEDS: Melatonin 3 MG TAB PER TUBE PRN (20:10)
[2019-05-02] MEDS ORDERED: Polyethylene Glycol 3350 17 GM Packet PO PRN (20:28)
--- NOTE | 2019-05-02 20:58 | PRG ---
DATE OF SERVICE: 05/02/2019 SUBJECTIVE: The patient is a 68-year-old female undergoing rehabilitation. The patient states she worked really hard today on balance and walking. She states she also did some hand exercises. She states that her did come briefly today and was with her for. Physical Therapy was working with her. She is given messages to nursing staff that she has had some constipation. OBJECTIVE: VITAL SIGNS: Temp 97.6, pulse 68, respiration rate 18, O2 saturation 98% on room air, blood pressure 111/60. GENERAL: The patient is awake, alert, and oriented, and in no acute distress. CARDIOVASCULAR: Regular rate and rhythm without murmurs, gallops, or rubs. LUNGS: Clear to auscultation bilaterally without wheezing or rhonchi. ABDOMEN: Soft, nontender, nondistended. Bowel sounds present. PEG tube is in place and insertion site is clean and nonerythematous. EXTREMITIES: No clubbing, cyanosis, or edema. ASSESSMENT AND PLAN: 1. Subarachnoid hemorrhage with hydrocephalus: The patient has a PLASTICS FABRICATOR OR WELDER shunt in place and last scan showed it is functioning well. She will continue PT and OT. 2. Dysphagia: The patient is eating well. She is still using thickener and Speech Therapy is continuing to follow the patient. 3. Hypertension: It is well controlled with amlodipine. 4. Constipation: We will add MiraLAX as needed for constipation. 5. Hypothyroidism: Continue supplementation. Job ID: [id number]
[2019-05-03] MEDS: traMADol HCl 50 MG TAB PO PRN ×2 (00:17→09:12)
[2019-05-03] MEDS: Levothyroxine Sodium 50 MCG TAB PO SCH (05:25)
[2019-05-03] MEDS: Acetaminophen 325 MG TAB PER TUBE PRN ×2 (05:25→15:00)
[2019-05-03] MEDS: Famotidine 20 MG TAB PER TUBE SCH ×2 (09:10→20:24)
[2019-05-03] MEDS: Amlodipine 5 MG TAB PO SCH (09:10)
--- NOTE | 2019-05-03 09:52 | PRG ---
DATE OF SERVICE: 05/03/2019 SUBJECTIVE: The patient is a 68-year-old female, undergoing rehabilitation following hospitalization for subarachnoid hemorrhage and hydrocephalus. The patient also complains of some constipation, but denies abdominal pain, and has had one dose of MiraLAX so far. OBJECTIVE: VITAL SIGNS: Temp 96.4, pulse 65, respiration rate 18, O2 saturation 96% on room air, blood pressure 121/57. GENERAL: The patient is awake and alert, in no acute distress. CARDIOVASCULAR: Regular rate and rhythm. No murmurs, gallops, or rubs. LUNGS: Clear to auscultation bilaterally without wheezing or rhonchi. ABDOMEN: Soft, nontender, nondistended with PEG tube in place. EXTREMITIES: No clubbing, cyanosis, or edema. ASSESSMENT AND PLAN: 1. Subarachnoid hemorrhage with hydrocephalus: The patient is continuing physical therapy and occupational therapy. I am told an occupational therapist who is training with visual problems is coming today to try to help the patient as she continues to suffer from double vision. 2. Dysphagia: The patient is eating well. Speech therapy is continuing to work with the patient to help with swallowing. 3. Hypertension. Blood pressure is well controlled with amlodipine. 4. Hypothyroidism. Continue supplementation. 5. Constipation. Continue MiraLAX. 6. We will get CBC and BMP in the morning. Job ID: [id number]
[2019-05-03] MEDS: Melatonin 3 MG TAB PER TUBE PRN (20:24)
[2019-05-04] MEDS: Levothyroxine Sodium 50 MCG TAB PO SCH (05:22)
[2019-05-04 05:27] LABS: #Basophils 0.1 thou/uL (0.0-0.2); #Eosinphils 0.1 thou/uL (0.0-0.7); #Lymphocytes 1.9 thou/uL (1.20-3.40); #Monocytes 0.6 thou/uL (0.11-0.59); #Neutrophils 2.5 thou/uL (1.40-6.50); %Basophils 1.2 % (0.0-1.0); %Eosinophils 2.8 % (0.0-10.0); %Lymphocytes 35.6 % (21.0-51.0); %Monocytes 11.9 % (0.0-10.0); %Neutrophils 48.4 % (42.0-75.0); Hemoglobin 10.2 g/dL (12.0-16.0); Mean Corpuscular HGB CONC 33.7 g/dL (32.0-36.0); Mean Corpuscular Hemoglobin 31.5 pg (27.0-31.0); Mean Corpuscular Volume 93.4 fL (78.0-98.0); Platelet Count 209 thou/uL (130-400); RBC Distribution Width 13.4 % (11.5-14.5); Red Blood Cell (RBC) Count 3.25 mill/uL (4.20-5.40); White Blood Cell (WBC) Count 5.2 thou/uL (4.8-10.8)
[2019-05-04 05:44] LABS: Anion Gap 10 mmol/L (10-20); BUN (Urea Nitrogen) 7 mg/dL (9.8-20.1); Calc. Creatinine Clearance 81 mL/min (70-130); Carbon Dioxide 27 mmol/L (23-31); Chloride 105 mmol/L (98-107); Estimated GFR-MDRD Greater than 90; Glucose 91 mg/dL (80-115); Potassium 3.6 mmol/L (3.5-5.1); Sodium 138 mmol/L (136-145)
[2019-05-04] MEDS: Acetaminophen 325 MG TAB PER TUBE PRN ×2 (08:59→18:21)
[2019-05-04] MEDS: Famotidine 20 MG TAB PER TUBE SCH ×2 (09:00→20:46)
[2019-05-04] MEDS: Amlodipine 5 MG TAB PO SCH (09:00)
[2019-05-04] MEDS: traMADol HCl 50 MG TAB PO PRN ×2 (09:00→18:21)
[2019-05-04] MEDS: Melatonin 3 MG TAB PER TUBE PRN (20:46)
[2019-05-05] MEDS: Levothyroxine Sodium 50 MCG TAB PO SCH (05:25)
[2019-05-05] MEDS: Famotidine 20 MG TAB PER TUBE SCH ×2 (08:06→20:39)
[2019-05-05] MEDS: Acetaminophen 325 MG TAB PER TUBE PRN ×2 (08:06→18:17)
[2019-05-05] MEDS: traMADol HCl 50 MG TAB PO PRN ×2 (08:06→18:17)
[2019-05-05] MEDS: Amlodipine 5 MG TAB PO SCH (08:06)
[2019-05-05] MEDS: Melatonin 3 MG TAB PER TUBE PRN (20:39)
[2019-05-06] MEDS: Levothyroxine Sodium 50 MCG TAB PO SCH (05:16)
[2019-05-06] MEDS: Famotidine 20 MG TAB PER TUBE SCH ×2 (09:02→20:33)
[2019-05-06] MEDS: Amlodipine 5 MG TAB PO SCH (09:02)
[2019-05-06] MEDS: Acetaminophen 325 MG TAB PER TUBE PRN ×2 (09:04→19:03)
[2019-05-06] MEDS: traMADol HCl 50 MG TAB PO PRN ×2 (09:04→19:03)
[2019-05-06] MEDS: Melatonin 3 MG TAB PER TUBE PRN (20:33)
[2019-05-07 05:30] VITALS: BMI 22.6
[2019-05-07] MEDS: Levothyroxine Sodium 50 MCG TAB PO SCH (05:30)
[2019-05-07] MEDS: Famotidine 20 MG TAB PER TUBE SCH ×2 (09:01→20:16)
[2019-05-07] MEDS: Amlodipine 5 MG TAB PO SCH (09:01)
[2019-05-07] MEDS: traMADol HCl 50 MG TAB PO PRN ×2 (14:06→22:02)
[2019-05-07] MEDS: Acetaminophen 325 MG TAB PER TUBE PRN (18:03)
[2019-05-07] MEDS: Melatonin 3 MG TAB PER TUBE PRN (22:02)
[2019-05-08] MEDS: Levothyroxine Sodium 50 MCG TAB PO SCH (05:21)
[2019-05-08] MEDS: Acetaminophen 325 MG TAB PER TUBE PRN ×2 (05:21→20:30)
[2019-05-08] MEDS: Famotidine 20 MG TAB PER TUBE SCH ×2 (08:36→20:30)
[2019-05-08] MEDS: Amlodipine 5 MG TAB PO SCH (08:36)
--- NOTE | 2019-05-08 13:06 | PRG ---
DATE OF SERVICE: 05/06/2019 SUBJECTIVE: The patient is a 68-year-old female undergoing rehabilitation. The patient states that she has noticed an improvement in her vision since adjusting her glasses last week, when she gets up and is moving around. She is able to do most things for herself. Nursing has no concerns this morning. OBJECTIVE: VITAL SIGNS: Temperature 97.2, pulse 68, respiration rate 18, O2 saturation 95% on room air, and blood pressure 129/73. GENERAL: The patient is awake, alert, and oriented, in no acute distress. CARDIOVASCULAR: Regular rate and rhythm without murmurs, gallops, or rubs. LUNGS: Clear to auscultation bilaterally without wheezing or rhonchi. ABDOMEN: Soft, nontender, nondistended with PEG tube in place. EXTREMITIES: There is no clubbing, cyanosis, or edema. LABORATORY DATA: 1. CBC: WBCs 5.2, hemoglobin 10.2, hematocrit 30.4, and platelet count 209. 2. BMP: Sodium 138, potassium 3.6, chloride 105, bicarb 27, BUN 7, creatinine 0.65, glucose 91, and calcium 9.0. ASSESSMENT AND PLAN: 1. Subarachnoid hemorrhage with hydrocephalus: The patient is progressing well with therapy. She is eager to go home and we talked about the fact that she will likely go home sometime this coming week. 2. Dysphagia: Continue thickened liquids and her current diet orders. 3. PEG tube status: We will work to set the patient up with GI as an outpatient to remove her PEG tube. 4. Hypertension: Well controlled with amlodipine. 5. Hypothyroidism. Continue supplementation. Job ID: [id number]
--- NOTE | 2019-05-08 13:12 | PRG ---
DATE OF SERVICE: 05/08/2019 SUBJECTIVE: The patient is a 68-year-old female undergoing rehabilitation following subarachnoid hemorrhage and hydrocephalus. The patient is awaiting therapy this morning. She states she is feeling better and stronger. OBJECTIVE: VITAL SIGNS: Temp 96.8, pulse 64, respiration rate 16, O2 saturation 96% on room air, blood pressure 118/59. GENERAL: The patient is awake, alert, oriented, in no acute distress. CARDIOVASCULAR: Regular rate and rhythm without murmurs, gallops, or rubs. LUNGS: Clear to auscultation bilaterally without wheezing or rhonchi. ABDOMEN: Soft, nontender, nondistended with PEG tube in place which is clean and dry. EXTREMITIES: No clubbing or cyanosis. PSYCHIATRIC: The patient displays an appropriate mood and affect. ASSESSMENT AND PLAN: 1. Subarachnoid hemorrhage with hydrocephalus: The patient's BRUSH MAKER MACHINE shunt appears to be working normally. She will have a followup appointment the end of May with Neurosurgery. She will continue therapy. The plan is for her to discharge home likely tomorrow with [facility] as she will need to continue therapy. 2. Hypertension: Well controlled with amlodipine. 3. Hypothyroidism. Continue supplementation. 4. Dysphagia: The patient will need to continue her thickened liquids. 5. I had a long discussion with the patient this morning involving the importance of her keeping her followup appointments with both myself and her specialist as an outpatient. Job ID: [id number]
--- NOTE | 2019-05-08 13:14 | PRG ---
DATE OF SERVICE: 05/04/2019 SUBJECTIVE: The patient is a 68-year-old female, undergoing rehabilitation. She was able to work with occupational therapist yesterday to help with some of her double vision. They were able to put a piece of tape in the corner of one of her lenses. She states she feels like this has helped a little bit. She has been up walking with physical therapy at this morning. OBJECTIVE: VITAL SIGNS: Temperature 97.0, pulse 65, respiration rate 16, O2 saturation 96% on room air, blood pressure 137/65. GENERAL: The patient is awake, alert, oriented, in no acute distress. CARDIOVASCULAR: Regular rate and rhythm without murmurs, gallops, or rubs. LUNGS: Clear to auscultation bilaterally without wheezing or rhonchi. ABDOMEN: Soft, nontender, nondistended, with PEG tube in place, that is clean and dry. EXTREMITIES: There is no clubbing, cyanosis, or edema. ASSESSMENT AND PLAN: 1. Subarachnoid hemorrhage with hydrocephalus: The patient is doing well with physical therapy. I have talked with the assistant education director, who states that insurance is probably going to deny the patient next week, so we are moving forward with discharge planning. 2. Dysphagia: The patient is doing well and tolerating an oral diet. She is remembering that she needs to thicken her liquids on her own. 3. Hypertension, well controlled. 4. Hypothyroidism: Continue supplementation. 5. Constipation: The patient will continue MiraLAX as needed. Job ID: [id number]
[2019-05-08] MEDS: Melatonin 3 MG TAB PER TUBE PRN (20:30)
[2019-05-09] MEDS: Acetaminophen 325 MG TAB PER TUBE PRN (05:36)
[2019-05-09] MEDS: Levothyroxine Sodium 50 MCG TAB PO SCH (05:36)
[2019-05-09] MEDS: Famotidine 20 MG TAB PER TUBE SCH (08:04)
[2019-05-09] MEDS: Amlodipine 5 MG TAB PO SCH (08:04)
[2019-05-09 08:05] VITALS: BP 118/75; TEMP 98.1
--- NOTE | 2019-05-10 01:45 | DIS ---
DATE OF ADMISSION: 03/30/2019 DATE OF DISCHARGE: 05/09/2019 DISCHARGE DIAGNOSES: 1. Subarachnoid hemorrhage with hydrocephalus. 2. Chronic obstructive pulmonary disease. 3. Hypertension. 4. Hypothyroidism. 5. Deconditioning. 6. Dysphagia. HOSPITAL COURSE: The patient is a 68-year-old female, who had 2 [id number] [address] at [facility] with a subarachnoid hemorrhage and subsequent hydrocephalus. She was recently brought to [place], but was transferred back to the [facility] within 24 hours for worsening mental status. She was found to have a worsening hydrocephalus and underwent hospitalization and subsequent [employer] shunt placement. The patient was then transferred back to [place] for rehabilitation. Over the course of her stay at [place], she has begun to walk, though somewhat unsteadily. The patient's swallowing improved and is no longer requiring PEG tube feedings and is eating a regular diet with thickened liquids. The patient is working with therapy on her gait. She has some double vision and is likely due from the subarachnoid hemorrhage and currently has some tape across one of her lenses to try to help control the double vision. The patient will be discharged home with home health for continued therapy. We have instructed her and family on the importance of somebody ambulating with her as she is a fall risk because she is still unsteady. Both the patient and family have voiced understanding to myself and to nursing staff. DISCHARGE MEDICATIONS: 1. Norvasc 5 mg p.o. daily. 2. Levothyroxine 50 mcg p.o. daily. 3. Tramadol 50 mg p.o. q.8 hours p.r.n. pain. DISPOSITION: 1. The patient is discharged to home with her with interim home health for PT, OT, and Speech. 2. The patient has a followup with me tomorrow, May 10 at 9:30 a.m. Diet, heart healthy with thickened liquids. 3. The patient also has followup already scheduled with Neurosurgery on June 08 and they were arranging a CT of the head prior to this. 4. The patient is discharged to home in stable condition. 5. 35 minutes was spent arranging discharge, arranging med rec and setting up the patient's discharge planning. Job ID: [id number]
== END 2019-05-09 11:30 | disposition home health service (06) | DRG 949 ==
LOC: NAV ACUTE 20:38
PROVIDERS: ADMIT Family Medicine; ATTEND Family Medicine
DX: Z48.811 Encounter for surgical aftercare following surgery on the nervous system (principal); G91.9 Hydrocephalus, unspecified; I69.054 Hemiplegia and hemiparesis following nontraumatic subarachnoid hemorrhage affecting left non-dominant side; E87.1 Hypo-osmolality and hyponatremia; N39.0 Urinary tract infection, site not specified; G93.40 Encephalopathy, unspecified; Z95.828 Presence of other vascular implants and grafts; Z98.2 Presence of cerebrospinal fluid drainage device; J44.9 Chronic obstructive pulmonary disease, unspecified; B19.20 Unspecified viral hepatitis C without hepatic coma; E03.9 Hypothyroidism, unspecified; Z88.5 Allergy status to narcotic agent; F17.210 Nicotine dependence, cigarettes, uncomplicated; Z79.899 Other long term (current) drug therapy; R13.10 Dysphagia, unspecified; R53.81 Other malaise; G47.00 Insomnia, unspecified; R19.7 Diarrhea, unspecified; H53.2 Diplopia; R32 Unspecified urinary incontinence
CPT/HCPCS: 36415; 70450; 80048; 80053; 81001; 84443; 85025; 87077; 87086; 87186; G0515

== ENCOUNTER 2021-04-07 11:37 | Outpatient (CLI) | payer MEDICARE | END 2021-04-07 11:38 | disposition home or self-care (01) | LOC: NAV CT 11:37 | PROVIDERS: ATTEND Psychiatry & Neurology Neurology | DX: I71.9 Aortic aneurysm of unspecified site, without rupture (principal) | CPT/HCPCS: 70450 ==

== ENCOUNTER 2021-07-21 13:03 | Emergency (ER) | payer MEDICARE ==
[2021-07-21 14:20] LABS: #Basophils 0.1 thou/uL (0.0-0.2); #Eosinphils 0.1 thou/uL (0.0-0.7); #Monocytes 0.5 thou/uL (0.11-0.59); %Lymphocytes 30.5 % (21.0-51.0); %Monocytes 7.6 % (0.0-10.0); %Neutrophils 59.9 % (42.0-75.0); Hemoglobin 12.1 g/dL (12.0-16.0); Mean Corpuscular HGB CONC 30.7 g/dL (32.0-36.0); Mean Corpuscular Hemoglobin 31.2 pg (27.0-31.0); Mean Platelet Volume 9.7 fL (7.4-10.4); Platelet Count 238 thou/uL (130-400); RBC Distribution Width 13.3 % (11.5-14.5); Red Blood Cell (RBC) Count 3.89 mill/uL (4.20-5.40); White Blood Cell (WBC) Count 6.6 thou/uL (4.8-10.8)
[2021-07-21 14:27] LABS: Bilirubin Negative (Negative); Blood, Urine Trace (Negative); Clarity Clear (Clear); Glucose, Urine (Dipstick) Negative (Negative); Ketone, Urine Negative (Negative); Leukocyte Negative (Negative); Nitrite Negative (Negative); Protein, Urine (Dipstick) Negative (Neg-Trace); Specific Gravity, Urine 1.015 (1.005-1.030); Urobilinogen 0.2 mg/dL (Less than 2)
[2021-07-21 14:42] LABS: RBC/HPF 0-3 HPF (0-3); Squamous Epithelial 0-3 HPF (0-3); WBC/HPF None Seen HPF (0-3)
[2021-07-21] MEDS ORDERED: Sodium Chloride 0.9% 1,000 ML ONE (15:05)
== END 2021-07-21 16:10 | disposition home or self-care (01) ==
LOC: NAV ERS 13:03
DX: R63.0 Anorexia (principal); R43.8 Other disturbances of smell and taste; Z86.73 Personal history of transient ischemic attack (TIA), and cerebral infarction without residual deficits
CPT/HCPCS: 81003; 81015; 83690; 84484; 99284; J7050

== ENCOUNTER 2024-04-25 22:20 | Emergency (ER) | payer MEDICARE, SELFPAY ==
[2024-04-25 22:51] LABS: #Basophils 0.1 thou/uL (0.0-0.2); #Monocytes 0.6 thou/uL (0.11-0.59); #Neutrophils 8.5 thou/uL (1.40-6.50); %Basophils 0.6 % (0.0-1.0); %Eosinophils 0.4 % (0.0-10.0); %Lymphocytes 17.9 % (21.0-51.0); %Monocytes 4.9 % (0.0-10.0); %Neutrophils 76.2 % (42.0-75.0); Hematocrit 44.7 % (36.0-47.0); Mean Corpuscular HGB CONC 31.4 g/dL (32.0-36.0); Mean Corpuscular Hemoglobin 27.7 pg (27.0-31.0); Mean Corpuscular Volume 88.2 fl (78.0-98.0); Mean Platelet Volume 9.3 fL (7.4-10.4); Platelet Count 360 10x3/uL (130-400); RBC Distribution Width 12.2 % (11.5-14.5); Red Blood Cell (RBC) Count 5.07 mill/uL (4.20-5.40); White Blood Cell (WBC) Count 11.2 10x3/uL (4.8-10.8)
[2024-04-25] MEDS ORDERED: Ipratropium/Albuterol 3 ML NEB ONE (22:53)
[2024-04-25 23:07] LABS: Troponin I Less than 0.010 ng/mL (< 0.028)
[2024-04-25 23:08] LABS: ALT (SGPT) 9 U/L (8-55); AST (SGOT) 15 U/L (5-34); Albumin 3.8 g/dL (3.4-4.8); Alkaline Phosphatase 50 U/L (40-110); Anion Gap 17 mmol/L (10-20); BUN (Urea Nitrogen) 11 mg/dL (9.8-20.1); Bilirubin, Total 0.6 mg/dL (0.2-1.2); Calc. Creatinine Clearance 0 mL/min (70-130); Calcium 9.7 mg/dL (7.8-10.44); Carbon Dioxide 23 mmol/L (23-31); Chloride 102 mmol/L (98-107); Estimated GFR 83; Globulin 3.9 g/dL (2.4-3.5); Glucose 90 mg/dL (83-110); Protein, Total 7.7 g/dL (5.8-8.1); Sodium 138 mmol/L (136-145)
== END 2024-04-26 01:30 | disposition home or self-care (01) ==
LOC: NAV ERS 22:20
DX: R91.8 Other nonspecific abnormal finding of lung field (principal); I48.20 Chronic atrial fibrillation, unspecified; F17.290 Nicotine dependence, other tobacco product, uncomplicated; E03.9 Hypothyroidism, unspecified; J44.9 Chronic obstructive pulmonary disease, unspecified; Z86.73 Personal history of transient ischemic attack (TIA), and cerebral infarction without residual deficits; Z79.01 Long term (current) use of anticoagulants; Z79.899 Other long term (current) drug therapy; Z79.51 Long term (current) use of inhaled steroids
CPT/HCPCS: 71045; 71260; 80053; 83880; 84484; 85025; 87400; 93005; 94760; J7620; Q9967